=== PATIENT | male | born 1945 | race Caucasian/White ===

== ENCOUNTER 2023-02-10 20:46 | Inpatient (IN) | payer OTHER, MEDICARE ==
[2023-02-10] MEDS ORDERED: Vancomycin 1 GM/200 ML (FROZEN) BAG ONE (21:16)
[2023-02-10] MEDS ORDERED: Boostrix 0.5 ML (Tdap) VIAL (>/=7 yrs of age) ONE (21:16)
[2023-02-10] MEDS ORDERED: Sodium Chloride 0.9% 100 ML ONE (21:16)
[2023-02-10] MEDS ORDERED: Cefepime 2 GM VIAL ONE (21:16)
[2023-02-10] MEDS ORDERED: Acetaminophen 650 MG Suppository ONE (21:16)
[2023-02-10 21:35] LABS: Hematocrit 40.9 % (42.0-52.0); Hemoglobin 13.9 g/dL (14.0-18.0); Manual Diff?? YES; Mean Corpuscular Hemoglobin 32.9 pg (27.0-31.0); Mean Corpuscular Volume 96.7 fl (78.0-98.0); Mean Platelet Volume 12.4 fL (7.4-10.4); RBC Distribution Width 13.5 % (11.5-14.5); Red Blood Cell (RBC) Count 4.23 mill/uL (4.70-6.10); White Blood Cell (WBC) Count 22.1 10x3/uL (4.8-10.8)
[2023-02-10 21:40] LABS: Delete Auto Diff?? YES; Platelet Count 73 10x3/uL (130-400)
[2023-02-10 21:48] LABS: PTT 53.8 sec (22.9-36.1)
[2023-02-10 21:56] LABS: D-Dimer Test 5.98 *mcg/mL (0.27-0.43)
[2023-02-10 21:57] LABS: ALT (SGPT) 67 U/L (8-55); AST (SGOT) 187 U/L (5-34); Albumin 3.5 g/dL (3.4-4.8); Alkaline Phosphatase 110 U/L (40-110); Anion Gap 21 mmol/L (10-20); BUN (Urea Nitrogen) 57 mg/dL (8.4-25.7); Bilirubin, Total 1.9 mg/dL (0.2-1.2); Calc. Creatinine Clearance 0 mL/min (70-130); Calcium 8.3 mg/dL (7.8-10.44); Carbon Dioxide 17 mmol/L (23-31); Chloride 99 mmol/L (98-107); Estimated GFR 17; Globulin 4.3 g/dL (2.4-3.5); Glucose 173 mg/dL (83-110); Magnesium 1.5 mg/dL (1.6-2.6); Potassium 3.9 mmol/L (3.5-5.1); Protein, Total 7.8 g/dL (5.8-8.1); Sodium 133 mmol/L (136-145)
[2023-02-10 22:08] LABS: Band 33 % (5-11); CellaVision Operator ID LAB.CLH1; Large Platelets 2.9 % (0-5); Lymphocytes 7 % (21-51); Metamyelocyte 2 % (0-0); Monocytes 5 % (0-10); Neutrophil 53 % (42-75); Nucleated RBC (Manual Ct) 1 % (0); Platelet Adequacy Comment Platelets Decreased; Polychromasia SLIGHT = 2-3 cells HPF (0-2); Total Cell Count 105
[2023-02-10 22:09] LABS: CK (CPK) 7138 U/L (30-200)
[2023-02-10 22:29] LABS: Troponin I 1.987 ng/mL (< 0.028)
[2023-02-10] MEDS ORDERED: Magnesium 2 GM/50 ML BAG (IN WATER) ONE (22:30)
[2023-02-10] MEDS ORDERED: dilTIAZem 125 MG/25 ML SDV ONE (23:05)
[2023-02-11] MEDS ORDERED: Acetaminophen 650 MG Suppository PR PRN (00:32)
[2023-02-11] MEDS ORDERED: Ondansetron PF 4 MG/2 ML Vial IVP PRN (00:32)
[2023-02-11 00:49] LABS: Actual Bicarbonate (HCO3v) 15.7 mEq/L (22-28); Base Excess -9.4 mEq/L (-2.0 to +3.0); Calcium, Ionized (venous) 0.91 mmol/L (1.16-1.32); Chloride (VBG) 99 mmol/L (98-106); Hematocrit-VBG 43 % (42.0-52.0); Hemoglobin (Hb) 14.5 g/dL (12.6-17.4); Potassium (VBG) 3.82 mmol/L (3.70-5.30); Sodium 135 mmol/L (133-146); pH (venous) 7.305 (7.32-7.43)
[2023-02-11 00:51] LABS: INR-International Normal Ratio 1.8; Prothrombin Time 21.9 sec (12.0-14.7)
[2023-02-11] MEDS ORDERED: HumaLOG 300 UNITS/3 ML VIAL SC PRN (00:58)
[2023-02-11] MEDS ORDERED: Dextrose 50% Abboject 50 ML SYRINGE SLOW IVP PRN (00:58)
[2023-02-11] MEDS ORDERED: Glucagon 1 MG/ML KIT IM PRN (00:58)
[2023-02-11] MEDS ORDERED: Dextrose 5% in Water 1,000 ML IV PRN (00:58)
[2023-02-11 01:09] LABS: Critical Call Chem Troponin I REHAB.HO @0109; Troponin I 2.254 ng/mL (< 0.028)
[2023-02-11 01:09] LABS: Critical Call Chem-Lactate REHAB.HO @0109
[2023-02-11] MEDS ORDERED: Sodium Bicarb 50 MEQ/50 ML Abboject 8.4% SYRINGE IVP SCH (01:15)
[2023-02-11] MEDS ORDERED: Heparin 10,000 UNITS/ 10 ML VIAL SLOW IVP SCH (01:30)
[2023-02-11] MEDS ORDERED: Heparin 25,000 units/D5W 500 ML IVPB SCH (01:30)
[2023-02-11] MEDS ORDERED: dilTIAZem 125 MG in Sodium Chloride 0.9% 100 ML IVPB SCH (01:30)
[2023-02-11] MEDS ORDERED: NOREPINEPHRINE 8 MG/250 ML-D5W 250 ML ONE (01:37)
[2023-02-11] MEDS: Thiamine HCl 200 MG/2 ML VIAL SLOW IVP SCH (01:42)
[2023-02-11] MEDS ORDERED: Sodium Bicarb 50 mEq/50 ML VIAL IVP SCH (01:45)
[2023-02-11] MEDS ORDERED: Vancomycin Dose by Levels Sliding Scale (Wt 71-99) FS SCH (01:45)
[2023-02-11] MEDS ORDERED: Vancomycin HCl 750 MG in Sodium Chloride 0.9% 250 ML 250 ML IVPB SCH (02:00)
[2023-02-11] MEDS ORDERED: Sodium Chloride 0.9% 1,000 ML IV SCH (02:00)
[2023-02-11 02:14] LABS: Actual Bicarbonate (HCO3a) 18.7 mEq/L (22-28); Base Excess (BEa) -5.9 mEq/L (-2.0 to +3.0); CO2 Tension 34.2 mmHg (35.0-45.0); Carboxyhemoglobin (COHb) 0.5 gm% (0.0-3.0); Hematocrit-ABG 41 % (42.0-52.0); Hemoglobin (Hb) 13.9 g/dL (14.0-18.0); pH, Arterial 7.356 (7.35-7.45)
[2023-02-11] MEDS ORDERED: Vancomycin Dose by Levels Sliding Scale (Wt > 99) FS SCH (02:15)
[2023-02-11 02:18] LABS: Puncture Site LBA
[2023-02-11 02:30] LABS: Bacteria/HPF 4+ HPF (None Seen); Bilirubin Negative (Negative); Blood, Urine 3+ (Negative); CAUTI Indications for Culture Alt mental st,lethar; Clarity Turbid (Clear); Glucose, Urine (Dipstick) 30 mg/dL (Negative); Ketone, Urine Trace mg/dL (Negative); Leukocyte Negative Leu/uL (Negative); Nitrite Negative (Negative); Protein, Urine (Dipstick) 300 mg/dL (Neg-Trace); Renal Epithelial 0-3 HPF (None Seen); Specific Gravity, Urine 1.022 (1.002-1.036); Squamous Epithelial 0-3 HPF (0-3); Urobilinogen Normal mg/dL (Less than 2); WBC/HPF 21-50 HPF (0-3); pH, Urine 5.5 (5.0-9.0)
[2023-02-11] MEDS ORDERED: Meropenem 1 GM in Sodium Chloride 0.9% 100 ML IVPB SCH (02:30)
[2023-02-11 02:31] LABS: Urine Culture Reflex Yes Yes
[2023-02-11 02:33] LABS: Amphetamine Not Detected (NotDetected); Barbiturates Screen Not Detected (NotDetected); Benzodiazepine Screen Not Detected (NotDetected); Cocaine Metabolite Screen Not Detected (NotDetected); Methadone Not Detected (NotDetected); Methamphetamine Not Detected (NotDetected); Opiate Screen Not Detected (NotDetected); Oxycodone Screen Not Detected (NotDetected); Phencyclidine (PCP) Not Detected (NotDetected); THC/Cannabinoid Screen Not Detected (NotDetected); Tricyclic Screen Not Detected (NotDetected)
[2023-02-11 03:35] LABS: Hematocrit 37.6 % (42.0-52.0); Manual Diff?? YES; Mean Corpuscular HGB CONC 34.6 g/dL (32.0-36.0); Mean Corpuscular Hemoglobin 33.2 pg (27.0-31.0); Mean Corpuscular Volume 96.2 fl (78.0-98.0); Mean Platelet Volume 13.5 fL (7.4-10.4); Platelet Count 57 10x3/uL (130-400); RBC Distribution Width 13.7 % (11.5-14.5); Red Blood Cell (RBC) Count 3.91 mill/uL (4.70-6.10)
[2023-02-11 03:36] LABS: Delete Auto Diff?? YES
[2023-02-11 03:51] LABS: Critical Call Chem-Lactate NUR.KK6@0351; Lactic Acid 5.6 mmol/L (0.5-2.2)
[2023-02-11 03:56] LABS: Band 27 % (5-11); CellaVision Operator ID LAB.CLH1; Metamyelocyte 1 % (0-0); Monocytes 7 % (0-10); Neutrophil 65 % (42-75); Platelet Adequacy Comment Platelets Decreased; Poikilocytosis SLIGHT = 6-15 cells HPF (0-5); Polychromasia SLIGHT = 2-3 cells HPF (0-2); Total Cell Count 104
[2023-02-11 03:58] LABS: ALT (SGPT) 71 U/L (8-55); AST (SGOT) 223 U/L (5-34); Albumin 2.8 g/dL (3.4-4.8); Alkaline Phosphatase 108 U/L (40-110); Anion Gap 22 mmol/L (10-20); BUN (Urea Nitrogen) 63 mg/dL (8.4-25.7); Bilirubin, Total 1.9 mg/dL (0.2-1.2); Calc. Creatinine Clearance 26 mL/min (70-130); Calcium 7.5 mg/dL (7.8-10.44); Carbon Dioxide 15 mmol/L (23-31); Chloride 103 mmol/L (98-107); Estimated GFR 17; Globulin 3.9 g/dL (2.4-3.5); Glucose 168 mg/dL (83-110); Magnesium 1.7 mg/dL (1.6-2.6); Potassium 3.6 mmol/L (3.5-5.1); Protein, Total 6.7 g/dL (5.8-8.1); Sodium 136 mmol/L (136-145)
[2023-02-11 04:00] LABS: Critical Call Chem Troponin I NUR.KK6 @0400; Troponin I 2.683 ng/mL (< 0.028)
[2023-02-11] MEDS ORDERED: NOREPINEPHRINE 8 MG/250 ML-D5W 250 ML IVPB SCH (04:30)
[2023-02-11] MEDS ORDERED: Albumin 25% 25 GM (100 mL) BOT IVPB SCH ×2 (07:15→12:45)
[2023-02-11 07:20] LABS: Hematocrit 37.3 % (42.0-52.0); Hemoglobin 12.8 g/dL (14.0-18.0); Manual Diff?? YES; Mean Corpuscular HGB CONC 34.3 g/dL (32.0-36.0); Mean Corpuscular Hemoglobin 33.3 pg (27.0-31.0); Mean Corpuscular Volume 97.1 fl (78.0-98.0); RBC Distribution Width 13.6 % (11.5-14.5); Red Blood Cell (RBC) Count 3.84 mill/uL (4.70-6.10); White Blood Cell (WBC) Count 31.9 10x3/uL (4.8-10.8)
[2023-02-11 07:34] LABS: INR-International Normal Ratio 1.8
[2023-02-11 07:35] LABS: PTT 57.8 sec (22.9-36.1)
[2023-02-11 07:36] LABS: Delete Auto Diff?? YES; Platelet Count 56 10x3/uL (130-400)
[2023-02-11 07:39] LABS: Lactic Acid 3.9 mmol/L (0.5-2.2)
[2023-02-11] MEDS: Multivit, Therapeutic 1 TAB PO SCH (07:43)
[2023-02-11] MEDS: Folic Acid 1 MG TAB PO SCH (07:43)
[2023-02-11 07:55] LABS: Troponin I 2.774 ng/mL (< 0.028)
[2023-02-11] MEDS ORDERED: Magnesium 2 GM/50 ML(in water) 2 GM in Premix 1 BAG IVPB SCH (08:00)
[2023-02-11 08:13] LABS: Band 7 % (5-11); Burr Cells SLIGHT = 2-5 cells HPF (0-1); CellaVision Operator ID LAB.NR; Large Platelets 1.9 % (0-5); Lymphocytes 2 % (21-51); Macrocytosis SLIGHT = 6-15 cells HPF (0-5); Metamyelocyte 1 % (0-0); Monocytes 8 % (0-10); Neutrophil 83 % (42-75); Platelet Adequacy Comment Platelets Decreased; Poikilocytosis SLIGHT = 6-15 cells HPF (0-5); Polychromasia SLIGHT = 2-3 cells HPF (0-2); Smudge Cells 9.7 %; Total Cell Count 103; Toxic Granulation MODERATE; Vacuoles MODERATE
[2023-02-11] MEDS ORDERED: Lactated Ringer's 1,000 ML IV SCH (08:15)
[2023-02-11] MEDS ORDERED: Lactated Ringer's 500 ML IV SCH (08:15)
[2023-02-11] MEDS ORDERED: Pantoprazole 40 MG VIAL IVP SCH (09:00)
[2023-02-11] MEDS ORDERED: Famotidine/PF 20 mg/2ml Vial SLOW IVP SCH (09:00)
[2023-02-11 09:33] LABS: Anion Gap 21 mmol/L (10-20); BUN (Urea Nitrogen) 67 mg/dL (8.4-25.7); Calc. Creatinine Clearance 24 mL/min (70-130); Calcium 7.6 mg/dL (7.8-10.44); Carbon Dioxide 16 mmol/L (23-31); Chloride 104 mmol/L (98-107); Estimated GFR 16; Glucose 182 mg/dL (83-110); Potassium 3.7 mmol/L (3.5-5.1); Sodium 137 mmol/L (136-145)
[2023-02-11] MEDS: Meropenem 500 MG in Sodium Chloride 0.9% 100 ML IVPB SCH ×2 (10:43→22:32)
[2023-02-11] MEDS: HumaLOG 300 UNITS/3 ML VIAL SC PRN ×2 (11:02→17:35)
[2023-02-11] MEDS: Lactated Ringer's 1,000 ML IV SCH ×3 (13:12→19:50)
[2023-02-11] MEDS: Sodium Bicarbonate Tab 325 MG TAB PO SCH ×2 (14:14→21:00)
[2023-02-11] MEDS ORDERED: hydrALAZINE 20 MG/ML VIAL SLOW IVP PRN (15:00)
[2023-02-11] MEDS: Albumin 25% 25 GM (100 mL) BOT IVPB SCH ×2 (17:17→23:46)
[2023-02-11 19:01] LABS: Anion Gap 21 mmol/L (10-20); BUN (Urea Nitrogen) 76 mg/dL (8.4-25.7); Calc. Creatinine Clearance 24 mL/min (70-130); Carbon Dioxide 14 mmol/L (23-31); Chloride 104 mmol/L (98-107); Sodium 135 mmol/L (136-145)
[2023-02-11 19:02] LABS: Calcium 7.7 mg/dL (7.8-10.44); Estimated GFR 15; Glucose 220 mg/dL (83-110)
[2023-02-11 19:14] LABS: CK (CPK) 4654 U/L (30-200)
[2023-02-11] MEDS ORDERED: Cefepime 1 GM in Sodium Chloride 0.9% 100 ML IVPB SCH (21:00)
[2023-02-11] MEDS: Atorvastatin Calcium 40 MG TAB PO SCH (21:00)
[2023-02-11 23:35] LABS: Creatinine, Urine 170.2 mg/dL (63-166)
[2023-02-12] MEDS: Thiamine HCl 200 MG/2 ML VIAL SLOW IVP SCH (00:10)
[2023-02-12] MEDS: Lactated Ringer's 1,000 ML IV SCH ×5 (01:00→21:01)
[2023-02-12] MEDS ORDERED: Vancomycin 1 GM in Premix 1 BAG IVPB SCH (02:00)
[2023-02-12 05:12] LABS: Hematocrit 35.5 % (42.0-52.0); Hemoglobin 12.3 g/dL (14.0-18.0); Manual Diff?? YES; Mean Corpuscular HGB CONC 34.6 g/dL (32.0-36.0); Mean Corpuscular Hemoglobin 33.2 pg (27.0-31.0); Mean Corpuscular Volume 95.7 fl (78.0-98.0); RBC Distribution Width 13.7 % (11.5-14.5); Red Blood Cell (RBC) Count 3.71 mill/uL (4.70-6.10); White Blood Cell (WBC) Count 28.7 10x3/uL (4.8-10.8)
[2023-02-12 05:13] LABS: Delete Auto Diff?? YES; Platelet Count 40 10x3/uL (130-400)
[2023-02-12 05:27] LABS: ALT (SGPT) 68 U/L (8-55); AST (SGOT) 153 U/L (5-34); Albumin 3.2 g/dL (3.4-4.8); Alkaline Phosphatase 95 U/L (40-110); Anion Gap 19 mmol/L (10-20); BUN (Urea Nitrogen) 78 mg/dL (8.4-25.7); Bilirubin, Total 2.2 mg/dL (0.2-1.2); CK (CPK) 2810 U/L (30-200); Calc. Creatinine Clearance 27 mL/min (70-130); Calcium 7.5 mg/dL (7.8-10.44); Carbon Dioxide 18 mmol/L (23-31); Chloride 102 mmol/L (98-107); Cholesterol 64 mg/dl (< 200 Desired); Estimated GFR 17; Globulin 2.9 g/dL (2.4-3.5); Glucose 185 mg/dL (83-110); HDL Cholesterol Less than 8 mg/dL (>60 Neg Risk); Magnesium 2.3 mg/dL (1.6-2.6); Potassium 3.4 mmol/L (3.5-5.1); Protein, Total 6.1 g/dL (5.8-8.1); Sodium 136 mmol/L (136-145); Triglycerides 369 mg/dL (Less than 150)
[2023-02-12 05:28] LABS: Cardiac Risk TEST NOT PERFORMED (Less than 4.5)
[2023-02-12 05:49] LABS: Band 8 % (5-11); Burr Cells SLIGHT = 2-5 cells HPF (0-1); CellaVision Operator ID lab.sh2; Dohle Bodies MODERATE; Lymphocytes 3 % (21-51); Monocytes 1 % (0-10); Neutrophil 89 % (42-75); Ovalocytes SLIGHT = 2-5 cells HPF (0-1); Platelet Adequacy Comment Significant decrease; Poikilocytosis SLIGHT = 6-15 cells HPF (0-5); Polychromasia SLIGHT = 2-3 cells HPF (0-2); Smudge Cells 8.6 %; Tear Drops SLIGHT = 2-5 cells HPF (0-1); Total Cell Count 116; Toxic Granulation SLIGHT; Vacuoles SLIGHT
[2023-02-12] MEDS: Albumin 25% 25 GM (100 mL) BOT IVPB SCH ×2 (06:16→12:31)
[2023-02-12] MEDS: Potassium Chloride 20 MEQ in Premix 1 BAG IVPB SCH ×2 (08:53→11:00)
[2023-02-12] MEDS: Pantoprazole 40 MG VIAL IVP SCH ×2 (08:53→20:59)
[2023-02-12] MEDS: Sodium Bicarbonate Tab 325 MG TAB PO SCH ×3 (09:09→21:00)
[2023-02-12] MEDS: Folic Acid 1 MG TAB PO SCH (09:09)
[2023-02-12] MEDS: Multivit, Therapeutic 1 TAB PO SCH (09:09)
[2023-02-12] MEDS: Ergocalciferol 1.25 MG(50,000 UNITS) CAP PO SCH (09:10)
[2023-02-12] MEDS: HumaLOG 300 UNITS/3 ML VIAL SC PRN (10:15)
[2023-02-12] MEDS: Meropenem 500 MG in Sodium Chloride 0.9% 100 ML IVPB SCH ×2 (11:01→23:27)
[2023-02-12] MEDS ORDERED: Aspirin 300 MG Suppository PR SCH (11:30)
[2023-02-12] MEDS: Sodium Bicarbonate 150 MEQ in Sterile Water 1,000 ML IV SCH ×2 (12:10→22:17)
[2023-02-12] MEDS: Atorvastatin Calcium 40 MG TAB PO SCH (20:59)
[2023-02-13] MEDS: Thiamine HCl 200 MG/2 ML VIAL SLOW IVP SCH (00:08)
[2023-02-13] MEDS: Lactated Ringer's 1,000 ML IV SCH ×2 (02:10→14:25)
[2023-02-13 02:28] LABS: Vancomycin, Random 12.6 ug/mL (See Comment)
[2023-02-13] MEDS ORDERED: Vancomycin 1 GM in Premix 1 BAG IVPB SCH (03:00)
[2023-02-13 05:47] LABS: #Eosinphils 0.1 thou/uL (0.0-0.7); #Monocytes 1.8 thou/uL (0.11-0.59); #Neutrophils 14.8 thou/uL (1.40-6.50); %Basophils 0.2 % (0.0-1.0); %Eosinophils 0.4 % (0.0-10.0); %Lymphocytes 8.3 % (21.0-51.0); %Monocytes 9.9 % (0.0-10.0); %Neutrophils 80.3 % (42.0-75.0); Hematocrit 34.3 % (42.0-52.0); Hemoglobin 11.9 g/dL (14.0-18.0); Mean Corpuscular HGB CONC 34.7 g/dL (32.0-36.0); Mean Corpuscular Hemoglobin 33.1 pg (27.0-31.0); Mean Corpuscular Volume 95.3 fl (78.0-98.0); Mean Platelet Volume 14.1 fL (7.4-10.4); RBC Distribution Width 13.5 % (11.5-14.5); White Blood Cell (WBC) Count 18.5 10x3/uL (4.8-10.8)
[2023-02-13 05:52] LABS: Platelet Count 52 10x3/uL (130-400)
[2023-02-13 06:18] LABS: ALT (SGPT) 63 U/L (8-55); AST (SGOT) 104 U/L (5-34); Albumin 3.1 g/dL (3.4-4.8); Alkaline Phosphatase 88 U/L (40-110); Anion Gap 14 mmol/L (10-20); BUN (Urea Nitrogen) 74 mg/dL (8.4-25.7); Bilirubin, Total 2.3 mg/dL (0.2-1.2); Calc. Creatinine Clearance 51 mL/min (70-130); Calcium 7.8 mg/dL (7.8-10.44); Carbon Dioxide 21 mmol/L (23-31); Chloride 103 mmol/L (98-107); Estimated GFR 37; Globulin 2.9 g/dL (2.4-3.5); Glucose 169 mg/dL (83-110); Magnesium 2.1 mg/dL (1.6-2.6); Potassium 3.2 mmol/L (3.5-5.1); Sodium 135 mmol/L (136-145)
[2023-02-13] MEDS ORDERED: Potassium Phosphate 30 MMOL in Sodium Chloride 0.9% 250 ML 250 ML IVPB SCH (07:15)
[2023-02-13] MEDS ORDERED: Electrolyte Replacement Protocol 1 EACH FS SCH (08:00)
[2023-02-13] MEDS ORDERED: Electrolyte Replacement Protocol FS PRN (08:15)
[2023-02-13] MEDS: Pantoprazole 40 MG VIAL IVP SCH ×2 (08:18→22:36)
[2023-02-13] MEDS: Sodium Bicarbonate Tab 325 MG TAB PO SCH ×3 (08:24→22:36)
[2023-02-13] MEDS: Folic Acid 1 MG TAB PO SCH (08:25)
[2023-02-13] MEDS: Multivit, Therapeutic 1 TAB PO SCH (08:25)
[2023-02-13] MEDS ORDERED: Aspirin 300 MG Suppository PR SCH (09:00)
[2023-02-13] MEDS: Meropenem 500 MG in Sodium Chloride 0.9% 100 ML IVPB SCH (13:02)
[2023-02-13] MEDS: Sodium Bicarbonate 150 MEQ in Sterile Water 1,000 ML IV SCH (13:36)
[2023-02-13] MEDS: CEFAZOLIN 2 GM in Sodium Chloride 0.9% 100 ML IVPB SCH ×2 (14:39→22:39)
[2023-02-13] MEDS: Atorvastatin Calcium 40 MG TAB PO SCH (22:36)
[2023-02-13] MEDS: Potassium Chloride 20 MEQ in Premix 1 BAG IVPB SCH (22:37)
[2023-02-14] MEDS: Potassium Chloride 20 MEQ in Premix 1 BAG IVPB SCH (01:28)
[2023-02-14] MEDS: Meropenem 500 MG in Sodium Chloride 0.9% 100 ML IVPB SCH ×3 (02:04→23:00)
[2023-02-14 05:43] LABS: #Eosinphils 0.2 thou/uL (0.0-0.7); #Monocytes 1.5 thou/uL (0.11-0.59); #Neutrophils 11.9 thou/uL (1.40-6.50); %Basophils 0.2 % (0.0-1.0); %Eosinophils 1.2 % (0.0-10.0); %Lymphocytes 12.2 % (21.0-51.0); %Monocytes 9.5 % (0.0-10.0); Hematocrit 34.4 % (42.0-52.0); Hemoglobin 11.8 g/dL (14.0-18.0); Mean Corpuscular HGB CONC 34.3 g/dL (32.0-36.0); Mean Corpuscular Volume 93.2 fl (78.0-98.0); Mean Platelet Volume 12.4 fL (7.4-10.4); RBC Distribution Width 13.5 % (11.5-14.5); Red Blood Cell (RBC) Count 3.69 mill/uL (4.70-6.10); White Blood Cell (WBC) Count 15.7 10x3/uL (4.8-10.8)
[2023-02-14 05:53] LABS: Platelet Count 81 10x3/uL (130-400)
[2023-02-14] MEDS: CEFAZOLIN 2 GM in Sodium Chloride 0.9% 100 ML IVPB SCH ×2 (06:06→13:17)
[2023-02-14] MEDS: Sodium Bicarbonate 150 MEQ in Sterile Water 1,000 ML IV SCH (06:06)
[2023-02-14] MEDS ORDERED: FLU VACC QS2023(65UP)/MF59C/PF 60 MCG/0.5 ML SYRINGE IM ONE (09:00)
[2023-02-14] MEDS ORDERED: Thiamine 100 MG TAB PO SCH (09:00)
[2023-02-14] MEDS: Sodium Bicarbonate Tab 325 MG TAB PO SCH ×2 (09:05→20:04)
[2023-02-14] MEDS: Folic Acid 1 MG TAB PO SCH (09:05)
[2023-02-14] MEDS: Pantoprazole 40 MG VIAL IVP SCH ×2 (09:05→22:55)
[2023-02-14] MEDS: Multivit, Therapeutic 1 TAB PO SCH (09:05)
[2023-02-14] MEDS ORDERED: Barium Sulfate 96% 176 GM BOT (xray ONLY) PO ONE (10:33)
[2023-02-14 13:10] LABS: Albumin 2.9 g/dL (3.4-4.8); Anion Gap 14 mmol/L (10-20); BUN (Urea Nitrogen) 56 mg/dL (8.4-25.7); Calc. Creatinine Clearance 82 mL/min (70-130); Calcium 8.1 mg/dL (7.8-10.44); Carbon Dioxide 29 mmol/L (23-31); Chloride 103 mmol/L (98-107); Estimated GFR 62; Glucose 220 mg/dL (83-110); Phosphorus 1.9 mg/dL (2.3-4.7); Sodium 143 mmol/L (136-145)
[2023-02-14] MEDS ORDERED: Potassium Bicarbonate/Cit Ac 20 MEQ TAB PER TUBE SCH ×2 (14:30→20:15)
[2023-02-14] MEDS ORDERED: Potassium Phosphate 30 MMOL in Sodium Chloride 0.9% 250 ML 250 ML IVPB SCH (18:00)
[2023-02-14] MEDS ORDERED: Vancomycin (BATCH) 2 GM in Premix 1 BAG IVPB SCH (18:00)
[2023-02-14] MEDS: PHOS-NAK 1 PKT PACK PO SCH ×2 (18:31→22:56)
[2023-02-14] MEDS: Lactated Ringer's 1,000 ML IV SCH (19:19)
[2023-02-14 20:54] LABS: Potassium 3.4 mmol/L (3.5-5.1)
[2023-02-14] MEDS: Sodium Bicarbonate Tab 325 MG TAB PER TUBE SCH (22:55)
[2023-02-14] MEDS: Thiamine 100 MG TAB PER TUBE SCH (22:56)
[2023-02-14] MEDS: Atorvastatin Calcium 40 MG TAB PER TUBE SCH (23:03)
[2023-02-14] MEDS: PHOS-NAK 1 PKT PACK PER TUBE SCH ×2 (23:14→23:31)
[2023-02-14] MEDS: Meropenem 1 GM in Sodium Chloride 0.9% 100 ML IVPB SCH (23:29)
[2023-02-15] MEDS: Lactated Ringer's 1,000 ML IV SCH (03:56)
[2023-02-15] MEDS: Meropenem 1 GM in Sodium Chloride 0.9% 100 ML IVPB SCH ×2 (03:56→12:31)
[2023-02-15 05:36] LABS: #Eosinphils 0.2 thou/uL (0.0-0.7); #Monocytes 1.3 thou/uL (0.11-0.59); #Neutrophils 11.7 thou/uL (1.40-6.50); %Basophils 0.2 % (0.0-1.0); %Eosinophils 1.5 % (0.0-10.0); %Lymphocytes 10.9 % (21.0-51.0); %Monocytes 8.5 % (0.0-10.0); %Neutrophils 77.8 % (42.0-75.0); Hematocrit 37.5 % (42.0-52.0); Hemoglobin 12.8 g/dL (14.0-18.0); Mean Corpuscular HGB CONC 34.1 g/dL (32.0-36.0); Mean Corpuscular Hemoglobin 32.3 pg (27.0-31.0); Mean Corpuscular Volume 94.7 fl (78.0-98.0); Mean Platelet Volume 12.5 fL (7.4-10.4); Platelet Count 132 10x3/uL (130-400); RBC Distribution Width 13.8 % (11.5-14.5); Red Blood Cell (RBC) Count 3.96 mill/uL (4.70-6.10); White Blood Cell (WBC) Count 15.1 10x3/uL (4.8-10.8)
[2023-02-15 06:14] LABS: ALT (SGPT) 50 U/L (8-55); AST (SGOT) 89 U/L (5-34); Albumin 2.8 g/dL (3.4-4.8); Alkaline Phosphatase 94 U/L (40-110); Anion Gap 17 mmol/L (10-20); BUN (Urea Nitrogen) 46 mg/dL (8.4-25.7); BUN/Creatinine Ratio 50.55; Bilirubin, Total 2.8 mg/dL (0.2-1.2); CK (CPK) 733 U/L (30-200); Calc. Creatinine Clearance 113 mL/min (70-130); Calcium 7.6 mg/dL (7.8-10.44); Carbon Dioxide 27 mmol/L (23-31); Chloride 106 mmol/L (98-107); Estimated GFR 88; Globulin 3.1 g/dL (2.4-3.5); Glucose 156 mg/dL (83-110); Magnesium 1.6 mg/dL (1.6-2.6); Phosphorus 3.4 mg/dL (2.3-4.7); Potassium 3.6 mmol/L (3.5-5.1); Protein, Total 5.9 g/dL (5.8-8.1); Sodium 146 mmol/L (136-145)
[2023-02-15] MEDS ORDERED: Dextrose 5 %-0.45 % NaCl 1,000 ML IV SCH (07:15)
[2023-02-15] MEDS ORDERED: Magnesium 2 GM/50 ML(in water) 2 GM in Premix 1 BAG IVPB SCH (08:00)
[2023-02-15] MEDS ORDERED: Spironolactone 25 MG TAB PO SCH ×2 (09:00→09:30)
[2023-02-15] MEDS ORDERED: Torsemide 20 MG TAB PO SCH (09:30)
[2023-02-15] MEDS ORDERED: Metoprolol Tartrate 50 MG TAB PO SCH (12:15)
[2023-02-15] MEDS: Albumin 25% 25 GM (100 mL) BOT IVPB SCH ×3 (12:25→23:36)
[2023-02-15] MEDS: Pantoprazole 40 MG VIAL IVP SCH ×2 (12:32→22:48)
[2023-02-15] MEDS: Folic Acid 1 MG TAB PER TUBE SCH (12:53)
[2023-02-15] MEDS: Multivit, Therapeutic 1 TAB PER TUBE SCH (12:53)
[2023-02-15] MEDS: HumaLOG 300 UNITS/3 ML VIAL SC PRN (13:06)
[2023-02-15] MEDS: Sodium Bicarbonate Tab 325 MG TAB PER TUBE SCH (13:47)
[2023-02-15] MEDS: CEFAZOLIN 2 GM in Sodium Chloride 0.9% 100 ML IVPB SCH ×2 (15:47→22:49)
[2023-02-15] MEDS ORDERED: Albumin 25% 25 GM (100 mL) BOT IVPB SCH (22:45)
[2023-02-15] MEDS: Atorvastatin Calcium 40 MG TAB PER TUBE SCH (22:49)
[2023-02-15] MEDS: Thiamine 100 MG TAB PER TUBE SCH (22:50)
[2023-02-15] MEDS: Metoprolol Tartrate 50 MG TAB PO SCH (22:50)
[2023-02-16 01:33] LABS: #Eosinphils 0.3 thou/uL (0.0-0.7); #Monocytes 1.1 thou/uL (0.11-0.59); %Basophils 0.1 % (0.0-1.0); %Eosinophils 1.9 % (0.0-10.0); %Lymphocytes 13.7 % (21.0-51.0); %Monocytes 7.2 % (0.0-10.0); %Neutrophils 76.3 % (42.0-75.0); Hematocrit 33.4 % (42.0-52.0); Hemoglobin 11.2 g/dL (14.0-18.0); Mean Corpuscular HGB CONC 33.5 g/dL (32.0-36.0); Mean Corpuscular Hemoglobin 32.6 pg (27.0-31.0); Mean Corpuscular Volume 97.1 fl (78.0-98.0); Mean Platelet Volume 11.6 fL (7.4-10.4); Platelet Count 157 10x3/uL (130-400); RBC Distribution Width 14.2 % (11.5-14.5); Red Blood Cell (RBC) Count 3.44 mill/uL (4.70-6.10); White Blood Cell (WBC) Count 15.8 10x3/uL (4.8-10.8)
[2023-02-16 02:00] LABS: ALT (SGPT) 35 U/L (8-55); AST (SGOT) 69 U/L (5-34); Albumin 3.4 g/dL (3.4-4.8); Alkaline Phosphatase 91 U/L (40-110); Anion Gap 16 mmol/L (10-20); BUN (Urea Nitrogen) 40 mg/dL (8.4-25.7); Bilirubin, Total 2.7 mg/dL (0.2-1.2); Calc. Creatinine Clearance 105 mL/min (70-130); Calcium 8.6 mg/dL (7.8-10.44); Carbon Dioxide 30 mmol/L (23-31); Chloride 106 mmol/L (98-107); Estimated GFR 80; Globulin 3.3 g/dL (2.4-3.5); Glucose 142 mg/dL (83-110); Magnesium 1.5 mg/dL (1.6-2.6); Phosphorus 2.9 mg/dL (2.3-4.7); Protein, Total 6.7 g/dL (5.8-8.1); Sodium 149 mmol/L (136-145)
[2023-02-16] MEDS ORDERED: Magnesium 2 GM/50 ML(in water) 2 GM in Premix 1 BAG IVPB SCH ×2 (03:00→10:00)
[2023-02-16] MEDS: Potassium Chloride 20 MEQ in Premix 1 BAG IVPB SCH ×2 (03:42→06:04)
[2023-02-16] MEDS: CEFAZOLIN 2 GM in Sodium Chloride 0.9% 100 ML IVPB SCH ×3 (06:04→23:27)
[2023-02-16] MEDS ORDERED: Spironolactone 25 MG TAB PO SCH ×2 (08:00→09:00)
[2023-02-16] MEDS ORDERED: Isosorbide Dinitrate 5 MG TAB PO SCH (09:00)
[2023-02-16] MEDS ORDERED: Torsemide 20 MG TAB PO SCH (09:00)
[2023-02-16] MEDS ORDERED: Potassium Phosphate 30 MMOL in Sodium Chloride 0.9% 250 ML 250 ML IVPB SCH (10:00)
[2023-02-16] MEDS: Enoxaparin 120 MG/0.8 ML SYRINGE SC SCH ×2 (10:52→23:25)
[2023-02-16] MEDS: Folic Acid 1 MG TAB PER TUBE SCH (10:52)
[2023-02-16] MEDS: Multivit, Therapeutic 1 TAB PER TUBE SCH (10:52)
[2023-02-16] MEDS: Metoprolol Tartrate 50 MG TAB PO SCH ×2 (10:52→23:25)
[2023-02-16] MEDS: Hydrochlorothiazide 25 MG TAB PO SCH (10:52)
[2023-02-16] MEDS: Spironolactone 100 MG TAB PO SCH (10:52)
[2023-02-16] MEDS: Pantoprazole 40 MG VIAL IVP SCH (10:54)
[2023-02-16] MEDS: hydrALAZINE 25 MG TAB PO SCH ×2 (10:57→23:25)
[2023-02-16] MEDS: Isosorbide Dinitrate 20 MG TAB PO SCH ×2 (10:57→23:25)
[2023-02-16] MEDS: Atorvastatin Calcium 40 MG TAB PER TUBE SCH (23:24)
[2023-02-16] MEDS: Thiamine 100 MG TAB PER TUBE SCH (23:25)
[2023-02-17 06:36] LABS: #Eosinphils 0.3 thou/uL (0.0-0.7); #Monocytes 0.9 thou/uL (0.11-0.59); #Neutrophils 14.2 thou/uL (1.40-6.50); %Basophils 0.2 % (0.0-1.0); %Eosinophils 1.8 % (0.0-10.0); %Lymphocytes 11.4 % (21.0-51.0); %Monocytes 4.9 % (0.0-10.0); %Neutrophils 80.5 % (42.0-75.0); Hematocrit 34.3 % (42.0-52.0); Hemoglobin 11.4 g/dL (14.0-18.0); Mean Corpuscular HGB CONC 33.2 g/dL (32.0-36.0); Mean Corpuscular Hemoglobin 32.2 pg (27.0-31.0); Mean Corpuscular Volume 96.9 fl (78.0-98.0); Mean Platelet Volume 12.1 fL (7.4-10.4); Platelet Count 199 10x3/uL (130-400); RBC Distribution Width 14.3 % (11.5-14.5); Red Blood Cell (RBC) Count 3.54 mill/uL (4.70-6.10); White Blood Cell (WBC) Count 17.6 10x3/uL (4.8-10.8)
[2023-02-17] MEDS: CEFAZOLIN 2 GM in Sodium Chloride 0.9% 100 ML IVPB SCH ×3 (06:53→21:52)
[2023-02-17] MEDS: HumaLOG 300 UNITS/3 ML VIAL SC PRN (06:54)
[2023-02-17 07:01] LABS: Phosphorus 2.8 mg/dL (2.3-4.7)
[2023-02-17 07:09] LABS: ALT (SGPT) 35 U/L (8-55); AST (SGOT) 79 U/L (5-34); Alkaline Phosphatase 105 U/L (40-110); Anion Gap 12 mmol/L (10-20); BUN (Urea Nitrogen) 29 mg/dL (8.4-25.7); Bilirubin, Total 2.4 mg/dL (0.2-1.2); CK (CPK) 295 U/L (30-200); Calc. Creatinine Clearance 124 mL/min (70-130); Calcium 8.7 mg/dL (7.8-10.44); Carbon Dioxide 30 mmol/L (23-31); Chloride 104 mmol/L (98-107); Estimated GFR 91; Globulin 3.7 g/dL (2.4-3.5); Glucose 170 mg/dL (83-110); Magnesium 1.6 mg/dL (1.6-2.6); Potassium 3.1 mmol/L (3.5-5.1); Protein, Total 6.7 g/dL (5.8-8.1); Sodium 143 mmol/L (136-145)
[2023-02-17] MEDS ORDERED: Magnesium Sulfate In Water 4 GM in Premix 1 BAG IVPB SCH (08:00)
[2023-02-17] MEDS ORDERED: Potassium Phosphate 30 MMOL in Sodium Chloride 0.9% 250 ML 250 ML IVPB SCH (09:00)
[2023-02-17] MEDS: Metoprolol Tartrate 50 MG TAB PO SCH ×2 (09:22→21:51)
[2023-02-17] MEDS: Spironolactone 100 MG TAB PO SCH (09:22)
[2023-02-17] MEDS: Hydrochlorothiazide 25 MG TAB PO SCH (09:22)
[2023-02-17] MEDS: Multivit, Therapeutic 1 TAB PER TUBE SCH (09:22)
[2023-02-17] MEDS: hydrALAZINE 25 MG TAB PO SCH ×2 (09:22→21:51)
[2023-02-17] MEDS: Folic Acid 1 MG TAB PER TUBE SCH (09:23)
[2023-02-17] MEDS: Potassium Chloride 20 MEQ TAB PER TUBE SCH ×2 (09:23→14:16)
[2023-02-17] MEDS: Isosorbide Dinitrate 20 MG TAB PO SCH ×2 (09:23→21:51)
[2023-02-17] MEDS: Enoxaparin 120 MG/0.8 ML SYRINGE SC SCH ×2 (09:26→21:52)
[2023-02-17] MEDS ORDERED: Pancrelipase DR 12,000 1 CAP PER TUBE SCH (10:15)
[2023-02-17] MEDS ORDERED: Sodium Bicarbonate Tab 325 MG TAB PER TUBE SCH (10:15)
[2023-02-17] MEDS: Lansoprazole 15 MG/5 ML (BATCHED)UDCUP PER TUBE SCH (14:16)
[2023-02-17] MEDS: Thiamine 100 MG TAB PER TUBE SCH (21:51)
[2023-02-17] MEDS: Atorvastatin Calcium 40 MG TAB PER TUBE SCH (21:51)
[2023-02-18 05:48] LABS: #Eosinphils 0.2 thou/uL (0.0-0.7); #Monocytes 0.6 thou/uL (0.11-0.59); #Neutrophils 15.7 thou/uL (1.40-6.50); %Basophils 0.2 % (0.0-1.0); %Lymphocytes 10.3 % (21.0-51.0); %Monocytes 3.4 % (0.0-10.0); %Neutrophils 84.1 % (42.0-75.0); Hematocrit 33.2 % (42.0-52.0); Mean Corpuscular HGB CONC 33.1 g/dL (32.0-36.0); Mean Corpuscular Hemoglobin 32.6 pg (27.0-31.0); Mean Corpuscular Volume 98.5 fl (78.0-98.0); Mean Platelet Volume 11.4 fL (7.4-10.4); Platelet Count 206 10x3/uL (130-400); RBC Distribution Width 14.6 % (11.5-14.5); Red Blood Cell (RBC) Count 3.37 mill/uL (4.70-6.10); White Blood Cell (WBC) Count 18.6 10x3/uL (4.8-10.8)
[2023-02-18] MEDS: CEFAZOLIN 2 GM in Sodium Chloride 0.9% 100 ML IVPB SCH ×3 (06:18→22:18)
[2023-02-18] MEDS: HumaLOG 300 UNITS/3 ML VIAL SC PRN (06:19)
[2023-02-18 06:21] LABS: ALT (SGPT) 35 U/L (8-55); AST (SGOT) 91 U/L (5-34); Albumin 2.8 g/dL (3.4-4.8); Alkaline Phosphatase 123 U/L (40-110); Anion Gap 11 mmol/L (10-20); BUN (Urea Nitrogen) 26 mg/dL (8.4-25.7); Bilirubin, Total 2.3 mg/dL (0.2-1.2); Calc. Creatinine Clearance 115 mL/min (70-130); Calcium 8.4 mg/dL (7.8-10.44); Carbon Dioxide 30 mmol/L (23-31); Chloride 104 mmol/L (98-107); Estimated GFR 89; Globulin 4.2 g/dL (2.4-3.5); Glucose 161 mg/dL (83-110); Magnesium 1.6 mg/dL (1.6-2.6); Phosphorus 3.4 mg/dL (2.3-4.7); Potassium 3.3 mmol/L (3.5-5.1); Sodium 142 mmol/L (136-145)
[2023-02-18] MEDS ORDERED: Potassium Chloride 20 MEQ TAB PO SCH (08:00)
[2023-02-18] MEDS ORDERED: Magnesium 2 GM/50 ML(in water) 2 GM in Premix 1 BAG IVPB SCH (08:00)
[2023-02-18] MEDS: Enoxaparin 120 MG/0.8 ML SYRINGE SC SCH ×2 (09:01→22:17)
[2023-02-18] MEDS: hydrALAZINE 25 MG TAB PO SCH ×2 (09:01→22:04)
[2023-02-18] MEDS: Torsemide 10 MG TAB PO SCH (09:01)
[2023-02-18] MEDS: Folic Acid 1 MG TAB PER TUBE SCH (09:01)
[2023-02-18] MEDS: Metoprolol Tartrate 50 MG TAB PO SCH ×2 (09:01→22:05)
[2023-02-18] MEDS: Spironolactone 100 MG TAB PO SCH (09:01)
[2023-02-18] MEDS: Isosorbide Dinitrate 20 MG TAB PO SCH ×2 (09:01→22:05)
[2023-02-18] MEDS: Multivit, Therapeutic 1 TAB PER TUBE SCH (09:01)
[2023-02-18] MEDS: Lansoprazole 15 MG/5 ML (BATCHED)UDCUP PER TUBE SCH (09:02)
[2023-02-18] MEDS ORDERED: Sodium Bicarbonate Tab 325 MG TAB PER TUBE SCH (10:15)
[2023-02-18] MEDS ORDERED: Pancrelipase DR 12,000 1 CAP PER TUBE SCH (10:15)
[2023-02-18] MEDS ORDERED: Metoprolol Tartrate 5 MG (5 mL) VIAL IVP SCH (13:00)
[2023-02-18] MEDS ORDERED: Potassium Chloride 20 MEQ in Premix 1 BAG IVPB SCH ×2 (13:00→13:30)
[2023-02-18] MEDS ORDERED: Pantoprazole 40 MG VIAL IVP SCH (13:00)
[2023-02-18 21:37] LABS: Potassium 3.4 mmol/L (3.5-5.1)
[2023-02-18] MEDS: Atorvastatin Calcium 40 MG TAB PER TUBE SCH (22:04)
[2023-02-18] MEDS: Thiamine 100 MG TAB PER TUBE SCH (22:04)
[2023-02-18] MEDS: Potassium Chloride 20 MEQ in Premix 1 BAG IVPB SCH (22:18)
[2023-02-18] MEDS ORDERED: Potassium Bicarbonate/Cit Ac 20 MEQ TAB PER TUBE SCH (23:00)
[2023-02-19] MEDS: Potassium Chloride 20 MEQ in Premix 1 BAG IVPB SCH (00:22)
[2023-02-19] MEDS: CEFAZOLIN 2 GM in Sodium Chloride 0.9% 100 ML IVPB SCH ×3 (05:50→22:06)
[2023-02-19 07:33] LABS: Potassium 3.6 mmol/L (3.5-5.1)
[2023-02-19] MEDS ORDERED: Magnesium 2 GM/50 ML(in water) 2 GM in Premix 1 BAG IVPB SCH (08:00)
[2023-02-19] MEDS: Nitroglycerin 0.1mg/Hour PATCH TD SCH (09:39)
[2023-02-19] MEDS: Enoxaparin 120 MG/0.8 ML SYRINGE SC SCH ×2 (09:39→22:06)
[2023-02-19] MEDS: Pantoprazole 40 MG VIAL IVP SCH (09:39)
[2023-02-19] MEDS: Spironolactone 100 MG TAB PO SCH (10:45)
[2023-02-19] MEDS: Ergocalciferol 1.25 MG(50,000 UNITS) CAP PO SCH (10:45)
[2023-02-19] MEDS: Folic Acid 1 MG TAB PER TUBE SCH (10:46)
[2023-02-19] MEDS: hydrALAZINE 25 MG TAB PO SCH ×2 (10:47→22:07)
[2023-02-19] MEDS: Multivit, Therapeutic 1 TAB PER TUBE SCH (10:49)
[2023-02-19] MEDS: Lansoprazole 15 MG/5 ML (BATCHED)UDCUP PER TUBE SCH (10:49)
[2023-02-19] MEDS: Metoprolol Tartrate 50 MG TAB PO SCH ×2 (10:49→22:08)
[2023-02-19] MEDS: Isosorbide Dinitrate 20 MG TAB PO SCH ×2 (10:49→22:07)
[2023-02-19] MEDS: Torsemide 10 MG TAB PO SCH (10:49)
[2023-02-19] MEDS ORDERED: Morphine 2 MG/ML VIAL SLOW IVP PRN (18:12)
[2023-02-19] MEDS ORDERED: Dextrose 5 %-0.45 % NaCl 1,000 ML IV SCH (21:15)
[2023-02-19] MEDS: Atorvastatin Calcium 40 MG TAB PER TUBE SCH (22:08)
[2023-02-19] MEDS: Thiamine 100 MG TAB PER TUBE SCH (22:08)
[2023-02-20] MEDS: CEFAZOLIN 2 GM in Sodium Chloride 0.9% 100 ML IVPB SCH ×3 (06:49→21:51)
[2023-02-20] MEDS ORDERED: hydrALAZINE 20 MG/ML VIAL SLOW IVP PRN ×2 (08:21→08:23)
[2023-02-20] MEDS ORDERED: hydrALAZINE 20 MG/ML VIAL SLOW IVP SCH (08:30)
[2023-02-20] MEDS: Enoxaparin 120 MG/0.8 ML SYRINGE SC SCH ×3 (09:32→21:41)
[2023-02-20] MEDS: cloNIDine 0.1mg/24 Hour PATCH TD SCH (09:34)
[2023-02-20] MEDS: Spironolactone 100 MG TAB PO SCH (09:57)
[2023-02-20] MEDS: Isosorbide Dinitrate 20 MG TAB PO SCH ×2 (09:58→21:42)
[2023-02-20] MEDS: hydrALAZINE 25 MG TAB PO SCH ×2 (09:58→21:41)
[2023-02-20] MEDS: Lansoprazole 15 MG/5 ML (BATCHED)UDCUP PER TUBE SCH (09:58)
[2023-02-20] MEDS: Folic Acid 1 MG TAB PER TUBE SCH (09:58)
[2023-02-20] MEDS: Metoprolol Tartrate 50 MG TAB PO SCH ×2 (09:58→21:42)
[2023-02-20] MEDS: Torsemide 10 MG TAB PO SCH (09:59)
[2023-02-20] MEDS: Pantoprazole 40 MG VIAL IVP SCH (09:59)
[2023-02-20] MEDS: Multivit, Therapeutic 1 TAB PER TUBE SCH (09:59)
[2023-02-20] MEDS ORDERED: D5W-AA 4.25% with LYTES 1,000 ML IV SCH ×2 (11:45→12:00)
[2023-02-20] MEDS: Nitroglycerin 0.1mg/Hour PATCH TD SCH (16:54)
[2023-02-20] MEDS: Thiamine 100 MG TAB PER TUBE SCH (21:40)
[2023-02-20] MEDS: Atorvastatin Calcium 40 MG TAB PER TUBE SCH (21:41)
[2023-02-21] MEDS: Nitroglycerin 0.1mg/Hour PATCH TD SCH (05:33)
[2023-02-21] MEDS: CEFAZOLIN 2 GM in Sodium Chloride 0.9% 100 ML IVPB SCH ×3 (05:33→23:20)
[2023-02-21] MEDS ORDERED: Lidocaine 1% PF 5 ML VIAL ONE (08:13)
[2023-02-21] MEDS ORDERED: Sodium Bicarbonate 2.5 MEQ/5 ML SDV ONE (08:13)
[2023-02-21] MEDS ORDERED: Lidocaine 2% PF 5 ML VIAL ONE (08:19)
[2023-02-21] MEDS ORDERED: PROPOFOL 20 ML ONE (08:19)
[2023-02-21] MEDS ORDERED: PHENYLEPHRINE-NS 100 MCG/ML 10 ML SYRINGE ONE (09:02)
[2023-02-21] MEDS: Torsemide 10 MG TAB PER TUBE SCH (12:08)
[2023-02-21] MEDS: Folic Acid 1 MG TAB PER TUBE SCH (12:08)
[2023-02-21] MEDS: Spironolactone 100 MG TAB PER TUBE SCH (12:08)
[2023-02-21] MEDS: hydrALAZINE 25 MG TAB PER TUBE SCH ×2 (12:09→23:22)
[2023-02-21] MEDS: Multivit, Therapeutic 1 TAB PER TUBE SCH (12:09)
[2023-02-21] MEDS: Isosorbide Dinitrate 20 MG TAB PER TUBE SCH ×2 (12:09→23:22)
[2023-02-21] MEDS: Metoprolol Tartrate 50 MG TAB PER TUBE SCH ×2 (12:14→23:23)
[2023-02-21] MEDS: Lansoprazole 15 MG/5 ML (BATCHED)UDCUP PER TUBE SCH ×2 (12:15→12:40)
[2023-02-21] MEDS: Pantoprazole 40 MG VIAL IVP SCH (12:40)
[2023-02-21 12:54] LABS: #Eosinphils 0.1 thou/uL (0.0-0.7); #Monocytes 0.6 thou/uL (0.11-0.59); #Neutrophils 12.7 thou/uL (1.40-6.50); %Basophils 0.1 % (0.0-1.0); %Eosinophils 0.7 % (0.0-10.0); %Lymphocytes 9.5 % (21.0-51.0); %Monocytes 3.9 % (0.0-10.0); %Neutrophils 85.2 % (42.0-75.0); Hematocrit 31.1 % (42.0-52.0); Hemoglobin 10.1 g/dL (14.0-18.0); Mean Corpuscular HGB CONC 32.5 g/dL (32.0-36.0); Mean Corpuscular Hemoglobin 32.3 pg (27.0-31.0); Mean Corpuscular Volume 99.4 fl (78.0-98.0); Mean Platelet Volume 11.1 fL (7.4-10.4); Platelet Count 246 10x3/uL (130-400); RBC Distribution Width 14.7 % (11.5-14.5); Red Blood Cell (RBC) Count 3.13 mill/uL (4.70-6.10); White Blood Cell (WBC) Count 14.9 10x3/uL (4.8-10.8)
[2023-02-21 13:36] LABS: ALT (SGPT) 11 U/L (8-55); AST (SGOT) 40 U/L (5-34); Albumin 2.8 g/dL (3.4-4.8); Alkaline Phosphatase 93 U/L (40-110); Anion Gap 10 mmol/L (10-20); BUN (Urea Nitrogen) 25 mg/dL (8.4-25.7); Bilirubin, Total 1.8 mg/dL (0.2-1.2); CRP (Inflammatory) 14.85 mg/dL (= or < 0.5); Calc. Creatinine Clearance 66 mL/min (70-130); Calcium 8.7 mg/dL (7.8-10.44); Carbon Dioxide 26 mmol/L (23-31); Chloride 107 mmol/L (98-107); Estimated GFR 93; Globulin 4.6 g/dL (2.4-3.5); Glucose 132 mg/dL (83-110); Potassium 3.4 mmol/L (3.5-5.1); Protein, Total 7.4 g/dL (5.8-8.1); Sodium 140 mmol/L (136-145)
[2023-02-21] MEDS: Enoxaparin 120 MG/0.8 ML SYRINGE SC SCH ×2 (14:04→23:21)
[2023-02-21] MEDS: Spironolactone 100 MG TAB PO SCH (14:05)
[2023-02-21] MEDS: Thiamine 100 MG TAB PER TUBE SCH (23:22)
[2023-02-21] MEDS: Atorvastatin Calcium 40 MG TAB PER TUBE SCH (23:23)
[2023-02-22 04:22] LABS: #Eosinphils 0.1 thou/uL (0.0-0.7); #Monocytes 0.7 thou/uL (0.11-0.59); #Neutrophils 12.1 thou/uL (1.40-6.50); %Basophils 0.3 % (0.0-1.0); %Eosinophils 0.9 % (0.0-10.0); %Lymphocytes 12.1 % (21.0-51.0); %Monocytes 4.4 % (0.0-10.0); %Neutrophils 81.8 % (42.0-75.0); Hematocrit 30.9 % (42.0-52.0); Hemoglobin 9.9 g/dL (14.0-18.0); Mean Corpuscular Hemoglobin 31.7 pg (27.0-31.0); Mean Platelet Volume 11.2 fL (7.4-10.4); Platelet Count 275 10x3/uL (130-400); RBC Distribution Width 14.7 % (11.5-14.5); Red Blood Cell (RBC) Count 3.12 mill/uL (4.70-6.10); White Blood Cell (WBC) Count 14.8 10x3/uL (4.8-10.8)
[2023-02-22 05:10] LABS: Anion Gap 12 mmol/L (10-20); BUN (Urea Nitrogen) 29 mg/dL (8.4-25.7); Calc. Creatinine Clearance 59 mL/min (70-130); Calcium 8.5 mg/dL (7.8-10.44); Carbon Dioxide 25 mmol/L (23-31); Chloride 109 mmol/L (98-107); Estimated GFR 90; Glucose 120 mg/dL (83-110); Magnesium 1.6 mg/dL (1.6-2.6); Potassium 3.6 mmol/L (3.5-5.1); Sodium 142 mmol/L (136-145)
[2023-02-22] MEDS: CEFAZOLIN 2 GM in Sodium Chloride 0.9% 100 ML IVPB SCH ×3 (05:36→21:04)
[2023-02-22] MEDS ORDERED: Magnesium 2 GM/50 ML(in water) 2 GM in Premix 1 BAG IVPB SCH (06:00)
[2023-02-22] MEDS: Nitroglycerin 0.1mg/Hour PATCH TD SCH (09:56)
[2023-02-22] MEDS: Enoxaparin 120 MG/0.8 ML SYRINGE SC SCH ×2 (10:02→21:04)
[2023-02-22] MEDS: Metoprolol Tartrate 50 MG TAB PER TUBE SCH ×2 (10:06→21:05)
[2023-02-22] MEDS: Folic Acid 1 MG TAB PER TUBE SCH (10:06)
[2023-02-22] MEDS: Spironolactone 100 MG TAB PER TUBE SCH (10:06)
[2023-02-22] MEDS: Lansoprazole 15 MG/5 ML (BATCHED)UDCUP PER TUBE SCH (10:07)
[2023-02-22] MEDS: hydrALAZINE 25 MG TAB PER TUBE SCH ×2 (10:07→21:04)
[2023-02-22] MEDS: Isosorbide Dinitrate 20 MG TAB PER TUBE SCH ×2 (10:07→21:05)
[2023-02-22] MEDS: Torsemide 10 MG TAB PER TUBE SCH (10:07)
[2023-02-22] MEDS: Multivit, Therapeutic 1 TAB PER TUBE SCH (16:27)
[2023-02-22] MEDS: Atorvastatin Calcium 40 MG TAB PER TUBE SCH (21:05)
[2023-02-22] MEDS: Thiamine 100 MG TAB PER TUBE SCH (21:05)
[2023-02-23] MEDS: CEFAZOLIN 2 GM in Sodium Chloride 0.9% 100 ML IVPB SCH ×3 (05:53→21:15)
[2023-02-23] MEDS: HumaLOG 300 UNITS/3 ML VIAL SC PRN ×2 (06:13→13:05)
[2023-02-23] MEDS: Metoprolol Tartrate 50 MG TAB PER TUBE SCH ×2 (10:07→21:14)
[2023-02-23] MEDS: Multivit, Therapeutic 1 TAB PER TUBE SCH (10:07)
[2023-02-23] MEDS: Folic Acid 1 MG TAB PER TUBE SCH (10:07)
[2023-02-23] MEDS: Spironolactone 100 MG TAB PER TUBE SCH (10:07)
[2023-02-23] MEDS: hydrALAZINE 25 MG TAB PER TUBE SCH ×2 (10:07→21:14)
[2023-02-23] MEDS: Isosorbide Dinitrate 20 MG TAB PER TUBE SCH ×2 (10:07→21:13)
[2023-02-23] MEDS: Torsemide 10 MG TAB PER TUBE SCH (10:07)
[2023-02-23] MEDS: Enoxaparin 120 MG/0.8 ML SYRINGE SC SCH ×2 (10:09→21:14)
[2023-02-23] MEDS: Lansoprazole 15 MG/5 ML (BATCHED)UDCUP PER TUBE SCH (17:54)
[2023-02-23] MEDS: Thiamine 100 MG TAB PER TUBE SCH (21:14)
[2023-02-23] MEDS: Atorvastatin Calcium 40 MG TAB PER TUBE SCH (21:15)
[2023-02-24] MEDS: CEFAZOLIN 2 GM in Sodium Chloride 0.9% 100 ML IVPB SCH ×3 (05:20→22:20)
[2023-02-24] MEDS: Isosorbide Dinitrate 20 MG TAB PER TUBE SCH ×2 (08:22→20:46)
[2023-02-24] MEDS: Multivit, Therapeutic 1 TAB PER TUBE SCH (08:22)
[2023-02-24] MEDS: Metoprolol Tartrate 50 MG TAB PER TUBE SCH ×2 (08:24→20:46)
[2023-02-24] MEDS: hydrALAZINE 25 MG TAB PER TUBE SCH ×2 (08:25→20:46)
[2023-02-24] MEDS: Spironolactone 100 MG TAB PER TUBE SCH (08:26)
[2023-02-24] MEDS: Enoxaparin 120 MG/0.8 ML SYRINGE SC SCH ×3 (08:26→21:03)
[2023-02-24] MEDS: Folic Acid 1 MG TAB PER TUBE SCH (08:26)
[2023-02-24] MEDS: Lansoprazole 15 MG/5 ML (BATCHED)UDCUP PER TUBE SCH (08:26)
[2023-02-24] MEDS: Torsemide 10 MG TAB PER TUBE SCH (08:26)
[2023-02-24] MEDS: HumaLOG 300 UNITS/3 ML VIAL SC PRN (13:04)
[2023-02-24] MEDS: Thiamine 100 MG TAB PER TUBE SCH (20:46)
[2023-02-24] MEDS: Atorvastatin Calcium 40 MG TAB PER TUBE SCH (20:46)
[2023-02-25] MEDS: Acetaminophen 650 MG/20.3 ML UDCUP PER TUBE PRN ×2 (01:19→11:34)
[2023-02-25] MEDS: CEFAZOLIN 2 GM in Sodium Chloride 0.9% 100 ML IVPB SCH ×3 (06:31→21:07)
[2023-02-25] MEDS: HumaLOG 300 UNITS/3 ML VIAL SC PRN ×3 (06:31→18:21)
[2023-02-25 07:30] LABS: #Basophils 0.1 thou/uL (0.0-0.2); #Eosinphils 0.2 thou/uL (0.0-0.7); #Monocytes 0.7 thou/uL (0.11-0.59); #Neutrophils 11.2 thou/uL (1.40-6.50); %Basophils 0.3 % (0.0-1.0); %Eosinophils 1.4 % (0.0-10.0); %Lymphocytes 16.4 % (21.0-51.0); %Monocytes 4.5 % (0.0-10.0); %Neutrophils 76.7 % (42.0-75.0); Hematocrit 32.9 % (42.0-52.0); Hemoglobin 10.3 g/dL (14.0-18.0); Mean Corpuscular HGB CONC 31.3 g/dL (32.0-36.0); Mean Corpuscular Hemoglobin 31.6 pg (27.0-31.0); Mean Corpuscular Volume 100.9 fl (78.0-98.0); Mean Platelet Volume 10.5 fL (7.4-10.4); Platelet Count 210 10x3/uL (130-400); RBC Distribution Width 15.4 % (11.5-14.5); Red Blood Cell (RBC) Count 3.26 mill/uL (4.70-6.10); White Blood Cell (WBC) Count 14.5 10x3/uL (4.8-10.8)
[2023-02-25 07:45] LABS: Anion Gap 13 mmol/L (10-20); BUN (Urea Nitrogen) 30 mg/dL (8.4-25.7); Calc. Creatinine Clearance 52 mL/min (70-130); Calcium 8.9 mg/dL (7.8-10.44); Carbon Dioxide 28 mmol/L (23-31); Chloride 108 mmol/L (98-107); Estimated GFR 78; Glucose 186 mg/dL (83-110); Potassium 3.6 mmol/L (3.5-5.1); Sodium 145 mmol/L (136-145)
[2023-02-25] MEDS: Isosorbide Dinitrate 20 MG TAB PER TUBE SCH ×2 (10:14→21:07)
[2023-02-25] MEDS: Spironolactone 100 MG TAB PER TUBE SCH (10:14)
[2023-02-25] MEDS: Multivit, Therapeutic 1 TAB PER TUBE SCH (10:14)
[2023-02-25] MEDS: Metoprolol Tartrate 50 MG TAB PER TUBE SCH ×2 (10:14→21:07)
[2023-02-25] MEDS: Folic Acid 1 MG TAB PER TUBE SCH (10:14)
[2023-02-25] MEDS: Enoxaparin 120 MG/0.8 ML SYRINGE SC SCH ×2 (10:15→21:09)
[2023-02-25] MEDS: Torsemide 10 MG TAB PER TUBE SCH (10:15)
[2023-02-25] MEDS: hydrALAZINE 25 MG TAB PER TUBE SCH ×2 (10:15→21:07)
[2023-02-25] MEDS: Lansoprazole 15 MG/5 ML (BATCHED)UDCUP PER TUBE SCH (10:17)
[2023-02-25] MEDS: Atorvastatin Calcium 40 MG TAB PER TUBE SCH (21:07)
[2023-02-25] MEDS: Thiamine 100 MG TAB PER TUBE SCH (21:07)
[2023-02-26 04:38] LABS: #Eosinphils 0.2 thou/uL (0.0-0.7); #Monocytes 0.7 thou/uL (0.11-0.59); #Neutrophils 9.9 thou/uL (1.40-6.50); %Basophils 0.3 % (0.0-1.0); %Eosinophils 1.6 % (0.0-10.0); %Lymphocytes 13.8 % (21.0-51.0); %Monocytes 5.4 % (0.0-10.0); %Neutrophils 78.4 % (42.0-75.0); Hematocrit 29.6 % (42.0-52.0); Hemoglobin 9.3 g/dL (14.0-18.0); Mean Corpuscular HGB CONC 31.4 g/dL (32.0-36.0); Mean Corpuscular Hemoglobin 31.5 pg (27.0-31.0); Mean Corpuscular Volume 100.3 fl (78.0-98.0); Mean Platelet Volume 11.5 fL (7.4-10.4); Platelet Count 182 10x3/uL (130-400); RBC Distribution Width 15.5 % (11.5-14.5); Red Blood Cell (RBC) Count 2.95 mill/uL (4.70-6.10); White Blood Cell (WBC) Count 12.6 10x3/uL (4.8-10.8)
[2023-02-26 05:01] LABS: Anion Gap 11 mmol/L (10-20); BUN (Urea Nitrogen) 34 mg/dL (8.4-25.7); Calc. Creatinine Clearance 61 mL/min (70-130); Calcium 8.9 mg/dL (7.8-10.44); Carbon Dioxide 29 mmol/L (23-31); Chloride 108 mmol/L (98-107); Estimated GFR 91; Glucose 181 mg/dL (83-110); Potassium 3.8 mmol/L (3.5-5.1); Sodium 144 mmol/L (136-145)
[2023-02-26] MEDS: CEFAZOLIN 2 GM in Sodium Chloride 0.9% 100 ML IVPB SCH ×3 (06:15→21:35)
[2023-02-26] MEDS: Torsemide 10 MG TAB PER TUBE SCH (10:01)
[2023-02-26] MEDS: Folic Acid 1 MG TAB PER TUBE SCH (10:01)
[2023-02-26] MEDS: Isosorbide Dinitrate 20 MG TAB PER TUBE SCH ×2 (10:01→21:31)
[2023-02-26] MEDS: Ergocalciferol 1.25 MG(50,000 UNITS) CAP PO SCH (10:01)
[2023-02-26] MEDS: Multivit, Therapeutic 1 TAB PER TUBE SCH (10:02)
[2023-02-26] MEDS: Metoprolol Tartrate 50 MG TAB PER TUBE SCH ×2 (10:02→21:30)
[2023-02-26] MEDS: hydrALAZINE 25 MG TAB PER TUBE SCH ×2 (10:02→21:30)
[2023-02-26] MEDS: Spironolactone 100 MG TAB PER TUBE SCH (10:02)
[2023-02-26] MEDS: Lansoprazole 15 MG/5 ML (BATCHED)UDCUP PER TUBE SCH (10:03)
[2023-02-26] MEDS: Enoxaparin 120 MG/0.8 ML SYRINGE SC SCH ×2 (10:03→21:31)
[2023-02-26] MEDS: HumaLOG 300 UNITS/3 ML VIAL SC PRN ×2 (13:11→18:22)
[2023-02-26] MEDS ORDERED: Magnesium Citrate 300 ML BOT PO SCH (14:00)
[2023-02-26] MEDS: Atorvastatin Calcium 40 MG TAB PER TUBE SCH (21:30)
[2023-02-26] MEDS: Senokot S 8.6-50 MG TAB PO SCH (21:30)
[2023-02-26] MEDS: Thiamine 100 MG TAB PER TUBE SCH (21:30)
[2023-02-26] MEDS: Acetaminophen 650 MG/20.3 ML UDCUP PER TUBE PRN (21:38)
[2023-02-27] MEDS: CEFAZOLIN 2 GM in Sodium Chloride 0.9% 100 ML IVPB SCH ×3 (06:22→21:27)
[2023-02-27] MEDS: Metoprolol Tartrate 50 MG TAB PER TUBE SCH ×2 (09:25→21:27)
[2023-02-27] MEDS: hydrALAZINE 25 MG TAB PER TUBE SCH ×2 (09:25→21:27)
[2023-02-27] MEDS: Folic Acid 1 MG TAB PER TUBE SCH (09:25)
[2023-02-27] MEDS: Senokot S 8.6-50 MG TAB PO SCH ×2 (09:25→21:06)
[2023-02-27] MEDS: Isosorbide Dinitrate 20 MG TAB PER TUBE SCH ×2 (09:25→21:26)
[2023-02-27] MEDS: Enoxaparin 120 MG/0.8 ML SYRINGE SC SCH ×2 (09:26→21:27)
[2023-02-27] MEDS: Spironolactone 100 MG TAB PER TUBE SCH (09:26)
[2023-02-27] MEDS: cloNIDine 0.1mg/24 Hour PATCH TD SCH (09:27)
[2023-02-27] MEDS: Lansoprazole 15 MG/5 ML (BATCHED)UDCUP PER TUBE SCH (09:27)
[2023-02-27] MEDS: Multivit, Therapeutic 1 TAB PER TUBE SCH ×2 (09:28→21:26)
[2023-02-27] MEDS: Torsemide 10 MG TAB PER TUBE SCH (09:28)
[2023-02-27] MEDS: HumaLOG 300 UNITS/3 ML VIAL SC PRN (13:03)
[2023-02-27] MEDS ORDERED: Furosemide 20 MG (2 mL) VIAL SLOW IVP SCH (17:30)
[2023-02-27] MEDS: Cyanocobalamin (Vitamin B-12) 1,000 MCG TAB PER TUBE SCH (21:26)
[2023-02-27] MEDS: Atorvastatin Calcium 40 MG TAB PER TUBE SCH (21:26)
[2023-02-27] MEDS: Thiamine 100 MG TAB PER TUBE SCH (21:27)
[2023-02-28] MEDS: CEFAZOLIN 2 GM in Sodium Chloride 0.9% 100 ML IVPB SCH ×3 (05:51→22:30)
[2023-02-28 06:34] LABS: #Basophils 0.1 thou/uL (0.0-0.2); #Eosinphils 0.3 thou/uL (0.0-0.7); #Monocytes 0.7 thou/uL (0.11-0.59); #Neutrophils 8.5 thou/uL (1.40-6.50); %Basophils 0.4 % (0.0-1.0); %Eosinophils 2.4 % (0.0-10.0); %Lymphocytes 16.5 % (21.0-51.0); %Monocytes 5.8 % (0.0-10.0); %Neutrophils 74.5 % (42.0-75.0); Hemoglobin 9.5 g/dL (14.0-18.0); Mean Corpuscular HGB CONC 31.7 g/dL (32.0-36.0); Mean Corpuscular Hemoglobin 31.8 pg (27.0-31.0); Mean Corpuscular Volume 100.3 fl (78.0-98.0); Mean Platelet Volume 11.8 fL (7.4-10.4); Platelet Count 159 10x3/uL (130-400); RBC Distribution Width 15.5 % (11.5-14.5); Red Blood Cell (RBC) Count 2.99 mill/uL (4.70-6.10); White Blood Cell (WBC) Count 11.4 10x3/uL (4.8-10.8)
[2023-02-28 06:57] LABS: Phosphorus 3.8 mg/dL (2.3-4.7)
[2023-02-28 07:00] LABS: ALT (SGPT) 10 U/L (8-55); AST (SGOT) 28 U/L (5-34); Albumin 2.6 g/dL (3.4-4.8); Alkaline Phosphatase 102 U/L (40-110); Anion Gap 13 mmol/L (10-20); BUN (Urea Nitrogen) 41 mg/dL (8.4-25.7); Bilirubin, Total 0.8 mg/dL (0.2-1.2); Calc. Creatinine Clearance 54 mL/min (70-130); Calcium 8.8 mg/dL (7.8-10.44); Carbon Dioxide 29 mmol/L (23-31); Chloride 106 mmol/L (98-107); Estimated GFR 82; Glucose 163 mg/dL (83-110); Magnesium 1.7 mg/dL (1.6-2.6); Potassium 4.1 mmol/L (3.5-5.1); Protein, Total 7.6 g/dL (5.8-8.1); Sodium 144 mmol/L (136-145)
[2023-02-28] MEDS ORDERED: Magnesium 2 GM/50 ML(in water) 2 GM in Premix 1 BAG IVPB SCH (08:30)
[2023-02-28] MEDS: Spironolactone 100 MG TAB PER TUBE SCH (08:59)
[2023-02-28] MEDS: Metoprolol Tartrate 50 MG TAB PER TUBE SCH ×2 (08:59→22:29)
[2023-02-28] MEDS: Senokot S 8.6-50 MG TAB PO SCH ×2 (09:00→22:30)
[2023-02-28] MEDS: Folic Acid 1 MG TAB PER TUBE SCH (09:00)
[2023-02-28] MEDS: Isosorbide Dinitrate 20 MG TAB PER TUBE SCH ×2 (09:00→22:29)
[2023-02-28] MEDS: hydrALAZINE 25 MG TAB PER TUBE SCH ×2 (09:00→22:31)
[2023-02-28] MEDS: Torsemide 10 MG TAB PER TUBE SCH (09:00)
[2023-02-28] MEDS: Enoxaparin 120 MG/0.8 ML SYRINGE SC SCH ×2 (09:01→22:29)
[2023-02-28] MEDS: Lansoprazole 15 MG/5 ML (BATCHED)UDCUP PER TUBE SCH (09:01)
[2023-02-28] MEDS: HumaLOG 300 UNITS/3 ML VIAL SC PRN (13:09)
[2023-02-28] MEDS: metroNIDAZOLE 500 MG TAB PER TUBE SCH (22:29)
[2023-02-28] MEDS: Cyanocobalamin (Vitamin B-12) 1,000 MCG TAB PER TUBE SCH (22:29)
[2023-02-28] MEDS: Thiamine 100 MG TAB PER TUBE SCH (22:29)
[2023-02-28] MEDS: Multivit, Therapeutic 1 TAB PER TUBE SCH (22:29)
[2023-02-28] MEDS: Atorvastatin Calcium 40 MG TAB PER TUBE SCH (22:29)
[2023-03-01 04:50] LABS: #Eosinphils 0.3 thou/uL (0.0-0.7); #Monocytes 0.7 thou/uL (0.11-0.59); #Neutrophils 8.9 thou/uL (1.40-6.50); %Basophils 0.3 % (0.0-1.0); %Eosinophils 2.5 % (0.0-10.0); %Lymphocytes 16.2 % (21.0-51.0); %Monocytes 5.8 % (0.0-10.0); %Neutrophils 74.8 % (42.0-75.0); Hematocrit 28.1 % (42.0-52.0); Mean Corpuscular Hemoglobin 32.1 pg (27.0-31.0); Mean Corpuscular Volume 100.4 fl (78.0-98.0); Mean Platelet Volume 11.5 fL (7.4-10.4); Platelet Count 160 10x3/uL (130-400); RBC Distribution Width 15.3 % (11.5-14.5); White Blood Cell (WBC) Count 11.9 10x3/uL (4.8-10.8)
[2023-03-01 05:25] LABS: Anion Gap 11 mmol/L (10-20); BUN (Urea Nitrogen) 39 mg/dL (8.4-25.7); Calc. Creatinine Clearance 58 mL/min (70-130); Calcium 8.8 mg/dL (7.8-10.44); Carbon Dioxide 28 mmol/L (23-31); Chloride 108 mmol/L (98-107); Estimated GFR 89; Glucose 163 mg/dL (83-110); Magnesium 1.9 mg/dL (1.6-2.6); Potassium 4.1 mmol/L (3.5-5.1); Sodium 143 mmol/L (136-145)
[2023-03-01] MEDS: CEFAZOLIN 2 GM in Sodium Chloride 0.9% 100 ML IVPB SCH ×3 (06:04→21:26)
[2023-03-01] MEDS: HumaLOG 300 UNITS/3 ML VIAL SC PRN (06:05)
[2023-03-01] MEDS ORDERED: Magnesium 2 GM/50 ML(in water) 2 GM in Premix 1 BAG IVPB SCH (06:30)
[2023-03-01] MEDS: Folic Acid 1 MG TAB PER TUBE SCH (09:08)
[2023-03-01] MEDS: hydrALAZINE 25 MG TAB PER TUBE SCH ×2 (09:08→21:25)
[2023-03-01] MEDS: Metoprolol Tartrate 50 MG TAB PER TUBE SCH ×2 (09:08→21:24)
[2023-03-01] MEDS: metroNIDAZOLE 500 MG TAB PER TUBE SCH ×3 (09:08→21:24)
[2023-03-01] MEDS: Senokot S 8.6-50 MG TAB PO SCH ×2 (09:08→21:22)
[2023-03-01] MEDS: Isosorbide Dinitrate 20 MG TAB PER TUBE SCH ×2 (09:08→21:25)
[2023-03-01] MEDS: Torsemide 10 MG TAB PER TUBE SCH (09:09)
[2023-03-01] MEDS: Lansoprazole 15 MG/5 ML (BATCHED)UDCUP PER TUBE SCH (09:09)
[2023-03-01] MEDS: Enoxaparin 120 MG/0.8 ML SYRINGE SC SCH ×2 (09:09→21:25)
[2023-03-01] MEDS: Spironolactone 100 MG TAB PER TUBE SCH (09:09)
[2023-03-01 13:26] LABS: Troponin I 0.066 ng/mL (< 0.028)
[2023-03-01 15:53] LABS: Troponin I 0.071 ng/mL (< 0.028)
[2023-03-01] MEDS ORDERED: QUEtiapine 25 MG TAB PO SCH (21:00)
[2023-03-01] MEDS: Cyanocobalamin (Vitamin B-12) 1,000 MCG TAB PER TUBE SCH (21:23)
[2023-03-01] MEDS: Multivit, Therapeutic 1 TAB PER TUBE SCH (21:24)
[2023-03-01] MEDS: Atorvastatin Calcium 40 MG TAB PER TUBE SCH (21:24)
[2023-03-01] MEDS: Thiamine 100 MG TAB PER TUBE SCH (21:25)
[2023-03-02 05:19] LABS: #Basophils 0.1 thou/uL (0.0-0.2); #Eosinphils 0.4 thou/uL (0.0-0.7); #Monocytes 0.8 thou/uL (0.11-0.59); #Neutrophils 8.9 thou/uL (1.40-6.50); %Basophils 0.4 % (0.0-1.0); %Eosinophils 2.9 % (0.0-10.0); %Lymphocytes 17.5 % (21.0-51.0); %Monocytes 6.4 % (0.0-10.0); %Neutrophils 72.5 % (42.0-75.0); Hematocrit 31.1 % (42.0-52.0); Hemoglobin 9.6 g/dL (14.0-18.0); Mean Corpuscular HGB CONC 30.9 g/dL (32.0-36.0); Mean Corpuscular Hemoglobin 30.9 pg (27.0-31.0); Mean Platelet Volume 11.5 fL (7.4-10.4); Platelet Count 167 10x3/uL (130-400); RBC Distribution Width 15.6 % (11.5-14.5); Red Blood Cell (RBC) Count 3.11 mill/uL (4.70-6.10); White Blood Cell (WBC) Count 12.3 10x3/uL (4.8-10.8)
[2023-03-02] MEDS: CEFAZOLIN 2 GM in Sodium Chloride 0.9% 100 ML IVPB SCH ×3 (05:40→21:11)
[2023-03-02] MEDS: HumaLOG 300 UNITS/3 ML VIAL SC PRN (05:44)
[2023-03-02 05:46] LABS: Anion Gap 13 mmol/L (10-20); BUN (Urea Nitrogen) 36 mg/dL (8.4-25.7); Calc. Creatinine Clearance 56 mL/min (70-130); Carbon Dioxide 26 mmol/L (23-31); Chloride 110 mmol/L (98-107); Estimated GFR 86; Glucose 177 mg/dL (83-110); Magnesium 2.2 mg/dL (1.6-2.6); Phosphorus 3.9 mg/dL (2.3-4.7); Potassium 4.2 mmol/L (3.5-5.1); Sodium 145 mmol/L (136-145)
[2023-03-02] MEDS: Enoxaparin 120 MG/0.8 ML SYRINGE SC SCH ×2 (09:49→21:12)
[2023-03-02] MEDS: Spironolactone 100 MG TAB PER TUBE SCH (09:50)
[2023-03-02] MEDS: metroNIDAZOLE 500 MG TAB PER TUBE SCH ×3 (09:50→21:12)
[2023-03-02] MEDS: Torsemide 10 MG TAB PER TUBE SCH (09:50)
[2023-03-02] MEDS: hydrALAZINE 25 MG TAB PER TUBE SCH ×2 (09:50→21:11)
[2023-03-02] MEDS: Lansoprazole 15 MG/5 ML (BATCHED)UDCUP PER TUBE SCH (09:50)
[2023-03-02] MEDS: Metoprolol Tartrate 50 MG TAB PER TUBE SCH ×2 (09:50→21:11)
[2023-03-02] MEDS: Isosorbide Dinitrate 20 MG TAB PER TUBE SCH ×2 (09:50→21:12)
[2023-03-02] MEDS: Senokot S 8.6-50 MG TAB PO SCH ×2 (09:50→21:11)
[2023-03-02] MEDS: Folic Acid 1 MG TAB PER TUBE SCH (09:50)
[2023-03-02] MEDS ORDERED: QUEtiapine 25 MG TAB PO SCH (21:00)
[2023-03-02] MEDS: ADMIXTURE FEE IVPB SCH (21:11)
[2023-03-02] MEDS: GENTAMICIN IVPB SCH (21:11)
[2023-03-02] MEDS: Rifampin 300 MG CAP PO SCH (21:11)
[2023-03-02] MEDS: SODIUM CHLORIDE IVPB SCH (21:11)
[2023-03-02] MEDS: Thiamine 100 MG TAB PER TUBE SCH (21:12)
[2023-03-02] MEDS: Atorvastatin Calcium 40 MG TAB PER TUBE SCH (21:12)
[2023-03-02] MEDS: Multivit, Therapeutic 1 TAB PER TUBE SCH (21:12)
[2023-03-02] MEDS: Cyanocobalamin (Vitamin B-12) 1,000 MCG TAB PER TUBE SCH (21:57)
[2023-03-03 04:04] LABS: #Eosinphils 0.3 thou/uL (0.0-0.7); #Monocytes 0.9 thou/uL (0.11-0.59); #Neutrophils 8.6 thou/uL (1.40-6.50); %Basophils 0.3 % (0.0-1.0); %Eosinophils 2.1 % (0.0-10.0); %Lymphocytes 21.7 % (21.0-51.0); %Monocytes 6.9 % (0.0-10.0); %Neutrophils 68.4 % (42.0-75.0); Hematocrit 28.6 % (42.0-52.0); Hemoglobin 9.1 g/dL (14.0-18.0); Mean Corpuscular HGB CONC 31.8 g/dL (32.0-36.0); Mean Corpuscular Hemoglobin 31.7 pg (27.0-31.0); Mean Corpuscular Volume 99.7 fl (78.0-98.0); Mean Platelet Volume 11.9 fL (7.4-10.4); Platelet Count 176 10x3/uL (130-400); RBC Distribution Width 15.6 % (11.5-14.5); Red Blood Cell (RBC) Count 2.87 mill/uL (4.70-6.10); White Blood Cell (WBC) Count 12.5 10x3/uL (4.8-10.8)
[2023-03-03] MEDS: SODIUM CHLORIDE IVPB SCH ×3 (04:08→22:56)
[2023-03-03] MEDS: ADMIXTURE FEE IVPB SCH ×3 (04:08→22:56)
[2023-03-03] MEDS: GENTAMICIN IVPB SCH ×3 (04:08→22:56)
[2023-03-03 04:24] LABS: Anion Gap 12 mmol/L (10-20); BUN (Urea Nitrogen) 38 mg/dL (8.4-25.7); Calc. Creatinine Clearance 49 mL/min (70-130); Calcium 8.8 mg/dL (7.8-10.44); Carbon Dioxide 25 mmol/L (23-31); Chloride 111 mmol/L (98-107); Estimated GFR 74; Glucose 170 mg/dL (83-110); Potassium 4.4 mmol/L (3.5-5.1); Sodium 144 mmol/L (136-145)
[2023-03-03] MEDS: CEFAZOLIN 2 GM in Sodium Chloride 0.9% 100 ML IVPB SCH ×3 (04:49→22:56)
[2023-03-03] MEDS: Rifampin 300 MG CAP PO SCH ×3 (04:49→22:51)
[2023-03-03] MEDS: Enoxaparin 120 MG/0.8 ML SYRINGE SC SCH ×2 (09:11→22:55)
[2023-03-03] MEDS: Lansoprazole 15 MG/5 ML (BATCHED)UDCUP PER TUBE SCH (09:11)
[2023-03-03] MEDS: Metoprolol Tartrate 50 MG TAB PER TUBE SCH ×2 (09:12→22:52)
[2023-03-03] MEDS: Senokot S 8.6-50 MG TAB PO SCH ×2 (09:12→22:51)
[2023-03-03] MEDS: hydrALAZINE 25 MG TAB PER TUBE SCH ×2 (09:12→22:54)
[2023-03-03] MEDS: Torsemide 10 MG TAB PER TUBE SCH (09:12)
[2023-03-03] MEDS: Spironolactone 100 MG TAB PER TUBE SCH (09:12)
[2023-03-03] MEDS: metroNIDAZOLE 500 MG TAB PER TUBE SCH ×3 (09:12→22:51)
[2023-03-03] MEDS: Folic Acid 1 MG TAB PER TUBE SCH (09:13)
[2023-03-03] MEDS: Isosorbide Dinitrate 20 MG TAB PER TUBE SCH ×2 (09:13→22:53)
[2023-03-03] MEDS ORDERED: Lorazepam 0.5 MG TAB PO PRN (10:44)
[2023-03-03 12:34] LABS: Magnesium 1.9 mg/dL (1.6-2.6)
[2023-03-03] MEDS ORDERED: Magnesium 2 GM/50 ML(in water) 2 GM in Premix 1 BAG IVPB SCH (13:30)
[2023-03-03] MEDS: Multivit, Therapeutic 1 TAB PER TUBE SCH (22:52)
[2023-03-03] MEDS: Thiamine 100 MG TAB PER TUBE SCH (22:53)
[2023-03-03] MEDS: Atorvastatin Calcium 40 MG TAB PER TUBE SCH (22:55)
[2023-03-03] MEDS: Cyanocobalamin (Vitamin B-12) 1,000 MCG TAB PER TUBE SCH (23:02)
[2023-03-04 05:16] LABS: #Eosinphils 0.3 thou/uL (0.0-0.7); #Monocytes 0.7 thou/uL (0.11-0.59); #Neutrophils 8.6 thou/uL (1.40-6.50); %Basophils 0.3 % (0.0-1.0); %Eosinophils 2.5 % (0.0-10.0); %Lymphocytes 18.5 % (21.0-51.0); %Monocytes 6.2 % (0.0-10.0); Hematocrit 30.7 % (42.0-52.0); Hemoglobin 9.7 g/dL (14.0-18.0); Mean Corpuscular HGB CONC 31.6 g/dL (32.0-36.0); Mean Corpuscular Hemoglobin 31.5 pg (27.0-31.0); Mean Corpuscular Volume 99.7 fl (78.0-98.0); Mean Platelet Volume 11.3 fL (7.4-10.4); Platelet Count 202 10x3/uL (130-400); RBC Distribution Width 15.8 % (11.5-14.5); Red Blood Cell (RBC) Count 3.08 mill/uL (4.70-6.10); White Blood Cell (WBC) Count 11.9 10x3/uL (4.8-10.8)
[2023-03-04] MEDS: Rifampin 300 MG CAP PO SCH ×3 (06:00→21:54)
[2023-03-04] MEDS: CEFAZOLIN 2 GM in Sodium Chloride 0.9% 100 ML IVPB SCH ×3 (06:00→21:51)
[2023-03-04] MEDS: ADMIXTURE FEE IVPB SCH ×3 (06:00→21:52)
[2023-03-04] MEDS: SODIUM CHLORIDE IVPB SCH ×3 (06:00→21:52)
[2023-03-04] MEDS: GENTAMICIN IVPB SCH ×3 (06:00→21:52)
[2023-03-04 06:11] LABS: Anion Gap 14 mmol/L (10-20); BUN (Urea Nitrogen) 39 mg/dL (8.4-25.7); Calc. Creatinine Clearance 46 mL/min (70-130); Calcium 8.5 mg/dL (7.8-10.44); Carbon Dioxide 22 mmol/L (23-31); Chloride 113 mmol/L (98-107); Estimated GFR 68; Glucose 157 mg/dL (83-110); Potassium 4.4 mmol/L (3.5-5.1); Sodium 145 mmol/L (136-145)
[2023-03-04] MEDS: Enoxaparin 120 MG/0.8 ML SYRINGE SC SCH ×2 (08:29→21:55)
[2023-03-04] MEDS: Lansoprazole 15 MG/5 ML (BATCHED)UDCUP PER TUBE SCH (08:29)
[2023-03-04] MEDS: metroNIDAZOLE 500 MG TAB PER TUBE SCH ×3 (08:30→21:54)
[2023-03-04] MEDS: Spironolactone 100 MG TAB PER TUBE SCH (08:30)
[2023-03-04] MEDS: Senokot S 8.6-50 MG TAB PO SCH ×2 (08:30→21:52)
[2023-03-04] MEDS: hydrALAZINE 25 MG TAB PER TUBE SCH ×2 (08:30→21:53)
[2023-03-04] MEDS: Metoprolol Tartrate 50 MG TAB PER TUBE SCH ×2 (08:30→21:53)
[2023-03-04] MEDS: Isosorbide Dinitrate 20 MG TAB PER TUBE SCH ×2 (08:31→21:52)
[2023-03-04] MEDS: Folic Acid 1 MG TAB PER TUBE SCH (08:31)
[2023-03-04] MEDS: Torsemide 10 MG TAB PER TUBE SCH (08:32)
[2023-03-04] MEDS: Acetaminophen 650 MG/20.3 ML UDCUP PER TUBE PRN (08:38)
[2023-03-04] MEDS ORDERED: Magnesium 2 GM/50 ML(in water) 2 GM in Premix 1 BAG IVPB SCH (09:00)
[2023-03-04] MEDS: Atorvastatin Calcium 40 MG TAB PER TUBE SCH (21:52)
[2023-03-04] MEDS: Multivit, Therapeutic 1 TAB PER TUBE SCH (21:53)
[2023-03-04] MEDS: Thiamine 100 MG TAB PER TUBE SCH (21:54)
[2023-03-04] MEDS: Cyanocobalamin (Vitamin B-12) 1,000 MCG TAB PER TUBE SCH (21:54)
[2023-03-05] MEDS ORDERED: Haloperidol Lactate 5 MG/ML VIAL SLOW IVP SCH ×2 (03:15)
[2023-03-05 05:05] LABS: #Eosinphils 0.4 thou/uL (0.0-0.7); #Monocytes 0.9 thou/uL (0.11-0.59); #Neutrophils 9.2 thou/uL (1.40-6.50); %Basophils 0.3 % (0.0-1.0); %Eosinophils 2.6 % (0.0-10.0); %Lymphocytes 24.5 % (21.0-51.0); %Monocytes 6.6 % (0.0-10.0); %Neutrophils 65.4 % (42.0-75.0); Hematocrit 31.3 % (42.0-52.0); Hemoglobin 9.8 g/dL (14.0-18.0); Mean Corpuscular HGB CONC 31.3 g/dL (32.0-36.0); Mean Corpuscular Hemoglobin 31.4 pg (27.0-31.0); Mean Corpuscular Volume 100.3 fl (78.0-98.0); Mean Platelet Volume 11.2 fL (7.4-10.4); Platelet Count 225 10x3/uL (130-400); RBC Distribution Width 15.9 % (11.5-14.5); Red Blood Cell (RBC) Count 3.12 mill/uL (4.70-6.10)
[2023-03-05 05:26] LABS: Anion Gap 16 mmol/L (10-20); BUN (Urea Nitrogen) 39 mg/dL (8.4-25.7); Calc. Creatinine Clearance 85 mL/min (70-130); Calcium 8.8 mg/dL (7.8-10.44); Carbon Dioxide 22 mmol/L (23-31); Chloride 113 mmol/L (98-107); Estimated GFR 66; Glucose 153 mg/dL (83-110); Magnesium 2.1 mg/dL (1.6-2.6); Potassium 4.1 mmol/L (3.5-5.1); Sodium 147 mmol/L (136-145)
[2023-03-05] MEDS: SODIUM CHLORIDE IVPB SCH ×2 (05:27→13:04)
[2023-03-05] MEDS: ADMIXTURE FEE IVPB SCH ×2 (05:27→13:04)
[2023-03-05] MEDS: GENTAMICIN IVPB SCH ×2 (05:27→13:04)
[2023-03-05] MEDS: CEFAZOLIN 2 GM in Sodium Chloride 0.9% 100 ML IVPB SCH ×3 (05:28→21:17)
[2023-03-05] MEDS: Rifampin 300 MG CAP PO SCH ×3 (05:28→21:16)
[2023-03-05] MEDS: Spironolactone 100 MG TAB PER TUBE SCH (08:54)
[2023-03-05] MEDS: Lansoprazole 15 MG/5 ML (BATCHED)UDCUP PER TUBE SCH (08:54)
[2023-03-05] MEDS: Senokot S 8.6-50 MG TAB PO SCH ×2 (08:54→21:16)
[2023-03-05] MEDS: Isosorbide Dinitrate 20 MG TAB PER TUBE SCH ×2 (08:54→21:16)
[2023-03-05] MEDS: Ergocalciferol 1.25 MG(50,000 UNITS) CAP PO SCH (08:54)
[2023-03-05] MEDS: Metoprolol Tartrate 50 MG TAB PER TUBE SCH ×2 (08:54→21:15)
[2023-03-05] MEDS: Folic Acid 1 MG TAB PER TUBE SCH (08:54)
[2023-03-05] MEDS: metroNIDAZOLE 500 MG TAB PER TUBE SCH ×3 (08:54→21:16)
[2023-03-05] MEDS: Enoxaparin 120 MG/0.8 ML SYRINGE SC SCH ×2 (08:55→21:16)
[2023-03-05] MEDS: Torsemide 10 MG TAB PER TUBE SCH (08:55)
[2023-03-05] MEDS: hydrALAZINE 25 MG TAB PER TUBE SCH ×2 (08:57→21:16)
[2023-03-05] MEDS ORDERED: Lorazepam 0.5 MG TAB PO PRN (12:06)
[2023-03-05] MEDS: Atorvastatin Calcium 40 MG TAB PER TUBE SCH (21:16)
[2023-03-05] MEDS: Cyanocobalamin (Vitamin B-12) 1,000 MCG TAB PER TUBE SCH (21:16)
[2023-03-05] MEDS: Multivit, Therapeutic 1 TAB PER TUBE SCH (21:16)
[2023-03-05] MEDS: Thiamine 100 MG TAB PER TUBE SCH (21:16)
[2023-03-05] MEDS: Acetaminophen 650 MG/20.3 ML UDCUP PER TUBE PRN (21:17)
[2023-03-06] MEDS ORDERED: ADMIXTURE FEE IVPB SCH (01:00)
[2023-03-06] MEDS ORDERED: GENTAMICIN IVPB SCH (01:00)
[2023-03-06] MEDS ORDERED: SODIUM CHLORIDE IVPB SCH (01:00)
[2023-03-06] MEDS: Rifampin 300 MG CAP PO SCH ×3 (05:18→22:06)
[2023-03-06] MEDS: CEFAZOLIN 2 GM in Sodium Chloride 0.9% 100 ML IVPB SCH ×3 (05:19→22:07)
[2023-03-06] MEDS: Acetaminophen 650 MG/20.3 ML UDCUP PER TUBE PRN (05:28)
[2023-03-06 06:15] LABS: Anion Gap 17 mmol/L (10-20); BUN (Urea Nitrogen) 36 mg/dL (8.4-25.7); Calc. Creatinine Clearance 0 mL/min (70-130); Calcium 9.3 mg/dL (7.8-10.44); Carbon Dioxide 19 mmol/L (23-31); Chloride 115 mmol/L (98-107); Estimated GFR 71; Glucose 144 mg/dL (83-110); Potassium 4.8 mmol/L (3.5-5.1); Sodium 146 mmol/L (136-145)
[2023-03-06 06:24] LABS: #Eosinphils 0.4 thou/uL (0.0-0.7); #Monocytes 0.7 thou/uL (0.11-0.59); #Neutrophils 9.4 thou/uL (1.40-6.50); %Basophils 0.3 % (0.0-1.0); %Eosinophils 3.3 % (0.0-10.0); %Lymphocytes 17.5 % (21.0-51.0); %Monocytes 5.7 % (0.0-10.0); %Neutrophils 72.4 % (42.0-75.0); Hematocrit 30.8 % (42.0-52.0); Hemoglobin 9.5 g/dL (14.0-18.0); Mean Corpuscular HGB CONC 30.8 g/dL (32.0-36.0); Mean Corpuscular Hemoglobin 31.1 pg (27.0-31.0); Mean Platelet Volume 10.8 fL (7.4-10.4); Platelet Count 236 10x3/uL (130-400); RBC Distribution Width 16.1 % (11.5-14.5); Red Blood Cell (RBC) Count 3.05 mill/uL (4.70-6.10)
[2023-03-06] MEDS: Spironolactone 100 MG TAB PER TUBE SCH (09:31)
[2023-03-06] MEDS: Folic Acid 1 MG TAB PER TUBE SCH (09:31)
[2023-03-06] MEDS: Metoprolol Tartrate 50 MG TAB PER TUBE SCH ×2 (09:31→22:05)
[2023-03-06] MEDS: Torsemide 10 MG TAB PER TUBE SCH (09:31)
[2023-03-06] MEDS: hydrALAZINE 25 MG TAB PER TUBE SCH ×2 (09:31→22:06)
[2023-03-06] MEDS: cloNIDine 0.1mg/24 Hour PATCH TD SCH (09:31)
[2023-03-06] MEDS: Isosorbide Dinitrate 20 MG TAB PER TUBE SCH ×2 (09:31→22:07)
[2023-03-06] MEDS: Enoxaparin 120 MG/0.8 ML SYRINGE SC SCH ×2 (09:31→22:04)
[2023-03-06] MEDS: Senokot S 8.6-50 MG TAB PO SCH ×2 (09:31→22:06)
[2023-03-06] MEDS: metroNIDAZOLE 500 MG TAB PER TUBE SCH ×3 (09:31→22:07)
[2023-03-06] MEDS: Lansoprazole 15 MG/5 ML (BATCHED)UDCUP PER TUBE SCH (09:32)
[2023-03-06] MEDS: Gentamicin Sulfate 80 MG in Premix 1 BAG IVPB SCH (13:31)
[2023-03-06] MEDS: HumaLOG 300 UNITS/3 ML VIAL SC PRN (14:31)
[2023-03-06] MEDS: Cyanocobalamin (Vitamin B-12) 1,000 MCG TAB PER TUBE SCH (22:06)
[2023-03-06] MEDS: Multivit, Therapeutic 1 TAB PER TUBE SCH (22:07)
[2023-03-06] MEDS: Atorvastatin Calcium 40 MG TAB PER TUBE SCH (22:07)
[2023-03-06] MEDS: Thiamine 100 MG TAB PER TUBE SCH (22:07)
[2023-03-07] MEDS: Gentamicin Sulfate 80 MG in Premix 1 BAG IVPB SCH ×2 (01:21→13:16)
[2023-03-07] MEDS: CEFAZOLIN 2 GM in Sodium Chloride 0.9% 100 ML IVPB SCH ×3 (05:03→21:10)
[2023-03-07] MEDS: Rifampin 300 MG CAP PO SCH ×3 (05:03→21:13)
[2023-03-07 07:53] VITALS: BMI 32.2
[2023-03-07] MEDS: Metoprolol Tartrate 50 MG TAB PER TUBE SCH ×2 (09:39→21:12)
[2023-03-07] MEDS: Folic Acid 1 MG TAB PER TUBE SCH (09:39)
[2023-03-07] MEDS: Spironolactone 100 MG TAB PER TUBE SCH (09:39)
[2023-03-07] MEDS: Enoxaparin 120 MG/0.8 ML SYRINGE SC SCH ×2 (09:39→21:11)
[2023-03-07] MEDS: Torsemide 10 MG TAB PER TUBE SCH (09:40)
[2023-03-07] MEDS: Isosorbide Dinitrate 20 MG TAB PER TUBE SCH ×2 (09:40→21:13)
[2023-03-07] MEDS: Lansoprazole 15 MG/5 ML (BATCHED)UDCUP PER TUBE SCH (09:40)
[2023-03-07] MEDS: Senokot S 8.6-50 MG TAB PO SCH ×2 (09:40→21:12)
[2023-03-07] MEDS: hydrALAZINE 25 MG TAB PER TUBE SCH ×2 (09:40→21:12)
[2023-03-07] MEDS: Acetaminophen 650 MG/20.3 ML UDCUP PER TUBE PRN (13:12)
[2023-03-07] MEDS: HumaLOG 300 UNITS/3 ML VIAL SC PRN (13:12)
[2023-03-07] MEDS: Cyanocobalamin (Vitamin B-12) 1,000 MCG TAB PER TUBE SCH (21:12)
[2023-03-07] MEDS: Multivit, Therapeutic 1 TAB PER TUBE SCH (21:12)
[2023-03-07] MEDS: Thiamine 100 MG TAB PER TUBE SCH (21:13)
[2023-03-07] MEDS: Atorvastatin Calcium 40 MG TAB PER TUBE SCH (21:13)
[2023-03-08] MEDS: Gentamicin Sulfate 80 MG in Premix 1 BAG IVPB SCH (02:18)
[2023-03-08 04:06] VITALS: TEMP 97.8
[2023-03-08] MEDS: CEFAZOLIN 2 GM in Sodium Chloride 0.9% 100 ML IVPB SCH (06:14)
[2023-03-08] MEDS: Rifampin 300 MG CAP PO SCH (06:15)
[2023-03-08] MEDS: HumaLOG 300 UNITS/3 ML VIAL SC PRN (07:07)
[2023-03-08 07:39] VITALS: BP 170/94
[2023-03-08] MEDS: Enoxaparin 120 MG/0.8 ML SYRINGE SC SCH (08:39)
[2023-03-08] MEDS: Isosorbide Dinitrate 20 MG TAB PER TUBE SCH (08:40)
[2023-03-08] MEDS: Metoprolol Tartrate 50 MG TAB PER TUBE SCH (08:40)
[2023-03-08] MEDS: Spironolactone 100 MG TAB PER TUBE SCH (08:40)
[2023-03-08] MEDS: Torsemide 10 MG TAB PER TUBE SCH (08:41)
[2023-03-08] MEDS: Folic Acid 1 MG TAB PER TUBE SCH (08:41)
[2023-03-08] MEDS: hydrALAZINE 25 MG TAB PER TUBE SCH (08:41)
[2023-03-08] MEDS: Lansoprazole 15 MG/5 ML (BATCHED)UDCUP PER TUBE SCH (08:41)
[2023-03-08] MEDS: Senokot S 8.6-50 MG TAB PO SCH (08:42)
== END 2023-03-08 10:40 | DRG 64 ==
LOC: ERS 20:46 → IMCU/EMU 23:57 → CCU 02-11 01:58 → 2SE 02-13 11:04
PROVIDERS: ADMIT Internal Medicine; ATTEND Family Medicine
PROC: 4A10X4Z Monitoring of Central Nervous Electrical Activity, External Approach (ICD-10-PCS; 2023-02-11)
PROC: 3E033XZ Introduction of Vasopressor into Peripheral Vein, Percutaneous Approach (ICD-10-PCS; 2023-02-11)
PROC: 30233J1 Transfusion of Nonautologous Serum Albumin into Peripheral Vein, Percutaneous Approach (ICD-10-PCS; 2023-02-11)
PROC: 4A033R1 Measurement of Arterial Saturation, Peripheral, Percutaneous Approach (ICD-10-PCS; 2023-02-11)
PROC: 5A09357 Assistance with Respiratory Ventilation, Less than 24 Consecutive Hours, Continuous Positive Airway Pressure (ICD-10-PCS; 2023-02-11)
PROC: 0DH63UZ Insertion of Feeding Device into Stomach, Percutaneous Approach (ICD-10-PCS; principal; 2023-02-15)
PROC: 02HV33Z Insertion of Infusion Device into Superior Vena Cava, Percutaneous Approach (ICD-10-PCS; 2023-02-21)
PROC: B5181ZA Fluoroscopy of Superior Vena Cava using Low Osmolar Contrast, Guidance (ICD-10-PCS; 2023-02-21)
PROC: B548ZZA Ultrasonography of Superior Vena Cava, Guidance (ICD-10-PCS; 2023-02-21)
PROC: 0DH63UZ Insertion of Feeding Device into Stomach, Percutaneous Approach (ICD-10-PCS; 2023-02-21)
PROC: 3E0G76Z Introduction of Nutritional Substance into Upper GI, Via Natural or Artificial Opening (ICD-10-PCS; 2023-02-21)
PROC: B246ZZ4 Ultrasonography of Right and Left Heart, Transesophageal (ICD-10-PCS; 2023-03-03)
DX: I63.40 Cerebral infarction due to embolism of unspecified cerebral artery (principal); A41.01 Sepsis due to Methicillin susceptible Staphylococcus aureus; I21.A1 Myocardial infarction type 2; R65.21 Severe sepsis with septic shock; J96.01 Acute respiratory failure with hypoxia; G93.41 Metabolic encephalopathy; I33.0 Acute and subacute infective endocarditis; T82.6XXA Infection and inflammatory reaction due to cardiac valve prosthesis, initial encounter; L97.429 Non-pressure chronic ulcer of left heel and midfoot with unspecified severity; N17.9 Acute kidney failure, unspecified; K62.5 Hemorrhage of anus and rectum; N39.0 Urinary tract infection, site not specified; E87.1 Hypo-osmolality and hyponatremia; I48.19 Other persistent atrial fibrillation; I47.20 Ventricular tachycardia, unspecified; I11.0 Hypertensive heart disease with heart failure; E83.42 Hypomagnesemia; I50.9 Heart failure, unspecified; I25.10 Atherosclerotic heart disease of native coronary artery without angina pectoris; N40.0 Benign prostatic hyperplasia without lower urinary tract symptoms; F17.210 Nicotine dependence, cigarettes, uncomplicated; E11.621 Type 2 diabetes mellitus with foot ulcer; T79.6XXA Traumatic ischemia of muscle, initial encounter; D69.6 Thrombocytopenia, unspecified; F10.10 Alcohol abuse, uncomplicated; Z66 Do not resuscitate; E87.6 Hypokalemia; R13.10 Dysphagia, unspecified; B95.61 Methicillin susceptible Staphylococcus aureus infection as the cause of diseases classified elsewhere; Z79.01 Long term (current) use of anticoagulants; Z95.1 Presence of aortocoronary bypass graft; Z95.2 Presence of prosthetic heart valve
CPT/HCPCS: 36415; 36416; 36568; 36600; 51702; 70450; 70486; 70551; 71045; 71250; 72125; 74018; 74177; 74230; 76705; 78315; 80048; 80053; 80061; 80069; 80170; 80202; 80306; 81001; 82010; 82274; 82306; 82550; 82565; 82570; 82805; 83605; 83735; 83880; 84100; 84132; 84156; 84300; 84443; 84484; 85025; 85379; 85384; 85610; 85730; 86140; 86850; 86900; 86901; 87040; 87077; 87086; 87149; 87186; 90715; 93005; 93010; 93306; 93312; 93923; 94660; 95816; 95819; 96365; 96367; 96375; 97139; A4217; A9503; C9113; J0360; J0692; J1580; J1630; J1644; J1650; J1815; J1940; J2001; J2185; J2272; J2704; J3370; J3370-JW; J3411; J3475; J3480; J3490; J7042; J7050; J7120; P9047; S0028